=== PATIENT | male | born 1975 | race Hispanic/Latino ===

== ENCOUNTER 2017-11-06 14:31 | Emergency (ER) | payer MEDICARE ==
[~2017-11-06 14:31] MED LIST: AMLO10TA4 PO; ATOR20TA65 PO; CARV12.511 PO; Folic Acid/Vitamin B Comp W-C PO; INSU10VI3 SQ; LEVO25TA54 PO; LOSA50TA37 PO; PARO-37 PO
[2017-11-06 15:06] LABS: BASOPHILS % (AUTO) 0.6 % (0.0-5.0); EOSINOPHILS % (AUTO) 1.7 % (0.0-8.0); HEMATOCRIT 31.7 % (42-54); LYMPHOCYTES % (AUTO) 12.1 % (21.0-51.0); MEAN CORPUSCULAR HGB CONC 34.8 g/dL (32.0-36.0); MONOCYTES % (AUTO) 8.3 % (3.0-13.0); NEUTROPHILS % (AUTO) 77.3 % (40.0-77.0); PLATELET COUNT (AUTO) 237 K/uL (130-400); RED BLOOD CELL COUNT(AUTO) 3.45 MIL/uL (4.50-6.20); RED CELL DISTRIBUTION WIDTH 14.5 % (11.0-15.5); WHITE BLOOD COUNT (AUTO) 9.4 K/uL (4.8-10.8)
[2017-11-06 15:14] LABS: CREATININE 4.9 mg/dL (0.5-1.5); POTASSIUM 3.7 mmol/L (3.5-5.1)
[2017-11-06 15:30] LABS: ALBUMIN 3.5 g/dL (3.5-5.0); BILIRUBIN,TOTAL 0.6 mg/dL (0.2-1.0); CREATINE KINASE MB 0.5 ng/mL (0.5-3.6); TOTAL PROTEIN, SERUM 7.7 g/dL (6.0-8.3)
[2017-11-06 15:33] LABS: B-TYPE NATRIURETIC PEPTIDE 176 pg/mL (0-100)
[2017-11-29] MEDS ORDERED: FOLI0.4T2 PO (16:24)
[2017-11-29] MEDS ORDERED: SEVELAMER CARB PO (16:24)
[2017-11-29] MEDS ORDERED: ATOR20TA65 PO (16:24)
[2017-11-29] MEDS ORDERED: FOLI1TAB61 PO (16:24)
[2017-11-29] MEDS ORDERED: HUM10VIA6 SQ (16:24)
[2017-11-29] MEDS ORDERED: AMLO10TA2 PO (16:24)
[2017-11-29] MEDS ORDERED: SUCR500T PO (16:24)
[2017-11-29] MEDS ORDERED: CARV25TA PO (16:24)
[2017-11-29] MEDS ORDERED: CALC667T5 PO (16:24)
[2017-11-29] MEDS ORDERED: LOSA100T29 PO (16:24)
== END 2017-11-06 17:34 | disposition home or self-care (01) ==
LOC: EDH 14:31
DX: I12.0 Hypertensive chronic kidney disease with stage 5 chronic kidney disease or end stage renal disease (principal); E11.22 Type 2 diabetes mellitus with diabetic chronic kidney disease; N18.6 End stage renal disease; E78.00 Pure hypercholesterolemia, unspecified; Z99.2 Dependence on renal dialysis
CPT/HCPCS: 36415; 71045; 80053; 82553; 83880; 84484; 85025; 93005

== ENCOUNTER 2017-11-07 23:59 | Inpatient (IN) | payer MEDICARE ==
[~2017-11-07] VITALS: Ht 170.2 cm; Wt 92.4 kg
[2017-11-08] MEDS ORDERED: ASPIRIN 325 MG TABLET ONE (00:20)
[2017-11-08 00:37] LABS: BASOPHILS % (AUTO) 0.8 % (0.0-5.0); HEMATOCRIT 28.7 % (42-54); LYMPHOCYTES % (AUTO) 22.2 % (21.0-51.0); MEAN CORPUSCULAR HEMOGLOBIN 32.9 pg (27.0-33.0); MEAN CORPUSCULAR HGB CONC 35.1 g/dL (32.0-36.0); MEAN CORPUSCULAR VOLUME 93.8 fL (79-99); MONOCYTES % (AUTO) 9.3 % (3.0-13.0); NEUTROPHILS % (AUTO) 63.7 % (40.0-77.0); PLATELET COUNT (AUTO) 201 K/uL (130-400); RED BLOOD CELL COUNT(AUTO) 3.06 MIL/uL (4.50-6.20); RED CELL DISTRIBUTION WIDTH 14.5 % (11.0-15.5); WHITE BLOOD COUNT (AUTO) 7.9 K/uL (4.8-10.8)
[2017-11-08 00:45] LABS: INR 0.95 (0.85-1.15); PARTIAL THROMBOPLASTIN TIME 27.5 SEC (26.3-35.5)
[2017-11-08 00:59] LABS: ALBUMIN 3.4 g/dL (3.5-5.0); BILIRUBIN,TOTAL 0.3 mg/dL (0.2-1.0); TOTAL PROTEIN, SERUM 7.4 g/dL (6.0-8.3)
[2017-11-08 01:03] LABS: CREATININE 8.3 mg/dL (0.5-1.5)
[2017-11-08] MEDS ORDERED: NITROGLYCERIN 1GM/1 INCH PACKET TD ONE (01:53)
[2017-11-08 02:42] LABS: AMPHET/METH SCREEN,URINE NEGATIVE (NEGATIVE); BARBITURATE SCREEN, URINE NEGATIVE (NEGATIVE); BENZODIAZEPINES SCREEN,URINE NEGATIVE (NEGATIVE); CANNABINOID SCREEN,URINE NEGATIVE (NEGATIVE); COCAINE SCREEN,URINE NEGATIVE (NEGATIVE); OPIATE SCREEN,URINE NEGATIVE (NEGATIVE); PHENCYCLIDINE SCREEN,URINE NEGATIVE (NEGATIVE)
[2017-11-08 08:24] LABS: CHOLESTEROL 122 mg/dL (<200); CREATINE KINASE MB 0.7 ng/mL (0.5-3.6); CREATINE KINASE, TOTAL 62 U/L (21-232); HDL CHOLESTEROL 34 mg/dL (29-71); LDL DIRECT 57 mg/dL (0-99); MYOGLOBIN 113 ng/mL (10-92); TRIGLYCERIDES 188 mg/dL (30-200); TROPONIN I < 0.04 ng/mL (0.00-0.06)
[2017-11-08 08:39] LABS: HEMOGLOBIN A1C 8.9 % (4.0-6.0)
[2017-11-08] MEDS ORDERED: INSULIN HUMULIN R 100 UNIT/ML 3ML ONE (09:58)
[2017-11-08] MEDS ORDERED: SODIUM CHLORIDE 0.9% 1000ML 1,000 ML IV PRN (12:45)
[2017-11-08] MEDS ORDERED: ALBUMIN (HUMAN) 25% 100 ML IV PRN (12:45)
[2017-11-08] MEDS ORDERED: HEPARIN SODIUM 5000UNIT/ML 1ML VIAL IJ PRN (12:45)
[2017-11-08] MEDS ORDERED: 0.9% SODIUM CHLORIDE 250 ML IV BAG IV PRN (12:45)
[2017-11-08 14:57] VITALS: BP 186/98
[2017-11-08 16:08] VITALS: BP 186/83
[2017-11-08] MEDS: EPOETIN ALFA 3,000 UNIT/ML ML SQ NR (16:49)
[2017-11-08] MEDS: EPOETIN ALFA 2,000 UNIT/ML VIAL SQ NR (16:49)
[2017-11-08] MEDS ORDERED: REGADENOSON 0.4 MG/5 ML PF SYG IVP SCH (19:30)
[2017-11-08] MEDS ORDERED: LIDOCAINE HCL-MPF 1% 2ML VIAL IJ PRN (19:45)
[2017-11-08] MEDS ORDERED: HYDROMORPHONE HCL 0.5 MG/0.5 ML ML IVP PRN (19:45)
[2017-11-08] MEDS ORDERED: ACETAMINOPHEN 325 MG TAB PO PRN (19:45)
[2017-11-08] MEDS ORDERED: POTASSIUM CHLORIDE 10% ELIXIR 20 MEQ/15 ML UDCUP PO PRN (19:45)
[2017-11-08] MEDS ORDERED: GLUCAGON 1MG KIT 1 MG ML IM PRN (19:45)
[2017-11-08] MEDS ORDERED: ONDANSETRON HCL 4 MG/2 ML VIAL IVP PRN (19:45)
[2017-11-08] MEDS ORDERED: POTASSIUM CHLORIDE 20 MEQ ERTAB PO PRN (19:45)
[2017-11-08] MEDS ORDERED: DEXTROSE 50%-WATER 50 ML DISP.SYRIN IV PRN (19:45)
[2017-11-08] MEDS ORDERED: POTASSIUM CHLORIDE 20MEQ/100ML 100 ML IV PRN (19:45)
[2017-11-08 19:59] VITALS: BP 180/96
[2017-11-08] MEDS ORDERED: HYDRALAZINE HCL 20 MG/ML VIAL ONE (20:04)
[2017-11-08] MEDS: INSULIN R PO SSI SQ SCH (20:48)
[2017-11-08] MEDS: HYDRALAZINE HCL 20 MG/ML VIAL IV PRN (21:09)
[2017-11-09 00:20] VITALS: BP 183/102
[2017-11-09] MEDS: HYDRALAZINE HCL 20 MG/ML VIAL IV PRN (00:56)
[2017-11-09 04:06] VITALS: BP 140/76
[2017-11-09 04:40] LABS: BASOPHILS % (AUTO) 1.1 % (0.0-5.0); EOSINOPHILS % (AUTO) 4.2 % (0.0-8.0); HEMATOCRIT 28.2 % (42-54); LYMPHOCYTES % (AUTO) 21.9 % (21.0-51.0); MEAN CORPUSCULAR HEMOGLOBIN 33.3 pg (27.0-33.0); MEAN CORPUSCULAR HGB CONC 35.8 g/dL (32.0-36.0); MONOCYTES % (AUTO) 7.7 % (3.0-13.0); NEUTROPHILS % (AUTO) 65.1 % (40.0-77.0); PLATELET COUNT (AUTO) 230 K/uL (130-400); RED BLOOD CELL COUNT(AUTO) 3.03 MIL/uL (4.50-6.20); RED CELL DISTRIBUTION WIDTH 14.4 % (11.0-15.5); WHITE BLOOD COUNT (AUTO) 8.6 K/uL (4.8-10.8)
[2017-11-09 04:52] LABS: CREATININE 7.2 mg/dL (0.5-1.5); MAGNESIUM 1.7 mg/dL (1.80-2.40); PHOSPHORUS 7.2 mg/dL (2.5-4.9); POTASSIUM 3.7 mmol/L (3.5-5.1)
[2017-11-09] MEDS: INSULIN R PO SSI SQ SCH ×4 (06:30→20:41)
[2017-11-09 07:00] VITALS: BP 149/75
[2017-11-09] MEDS ORDERED: REGADENOSON 0.4 MG/5 ML PF SYG IVP SCH (09:00)
[2017-11-09] MEDS: PANTOPRAZOLE SODIUM 40 MG TABLET.DR PO SCH (12:06)
[2017-11-09] MEDS: ASPIRIN 81MG TAB.CHEW PO SCH (12:06)
[2017-11-09 12:30] VITALS: BP 169/86
[2017-11-09] MEDS: EPOETIN ALFA 3,000 UNIT/ML ML SQ NR (14:29)
[2017-11-09] MEDS: EPOETIN ALFA 2,000 UNIT/ML VIAL SQ NR (14:29)
[2017-11-09 16:00] VITALS: BP 142/81
[2017-11-09] MEDS: INSULIN HUMULIN 70/30 100 UNIT/ML 3ML SQ SCH (16:51)
[2017-11-09 20:03] VITALS: BP 165/109
[2017-11-09] MEDS: CARVEDILOL 12.5 MG TABLET PO SCH (20:27)
[2017-11-09] MEDS ORDERED: ATORVASTATIN CALCIUM 20 MG TABLET PO SCH (21:00)
[2017-11-10] VITALS: BP 162/88
[2017-11-10] MEDS: HYDRALAZINE HCL 20 MG/ML VIAL IV PRN (03:26)
[2017-11-10 04:00] VITALS: BP 168/88
[2017-11-10] MEDS: INSULIN R PO SSI SQ SCH ×3 (06:08→16:24)
[2017-11-10] MEDS: INSULIN HUMULIN 70/30 100 UNIT/ML 3ML SQ SCH ×2 (06:27→16:36)
[2017-11-10] MEDS ORDERED: LEVOTHYROXINE 25 MCG TABLET PO SCH (06:30)
[2017-11-10 07:39] VITALS: BP 165/82
[2017-11-10] MEDS: PANTOPRAZOLE SODIUM 40 MG TABLET.DR PO SCH (08:48)
[2017-11-10] MEDS: ASPIRIN 81MG TAB.CHEW PO SCH (08:49)
[2017-11-10] MEDS: CARVEDILOL 12.5 MG TABLET PO SCH (08:49)
[2017-11-10] MEDS ORDERED: PAROXETINE HCL 20 MG TABLET PO SCH (09:00)
[2017-11-10] MEDS ORDERED: VITAMIN B COMPLEX 1 CAPSULE PO SCH (09:00)
[2017-11-10] MEDS ORDERED: LOSARTAN 50 MG TABLET PO SCH ×2 (09:00→10:52)
[2017-11-10] MEDS ORDERED: AMLODIPINE BESYLATE 5 MG TAB PO SCH (09:00)
[2017-11-10 11:00] VITALS: BP 170/88
[2017-11-10] MEDS: EPOETIN ALFA 2,000 UNIT/ML VIAL SQ NR (14:35)
[2017-11-10] MEDS: EPOETIN ALFA 3,000 UNIT/ML ML SQ NR (14:35)
[2017-11-10] MEDS ORDERED: AEC81 PO (15:37)
[2017-11-10] MEDS ORDERED: NITR0.4T50 SL (15:37)
[2017-11-10 16:24] VITALS: BP 150/79
[2017-11-10] MEDS ORDERED: CARVEDILOL 12.5 MG TABLET PO SCH (21:00)
[2017-11-11] MEDS ORDERED: LOSARTAN 50 MG TABLET PO SCH (09:00)
[2017-11-29] MEDS ORDERED: AMLO10TA2 PO (16:24)
[2017-11-29] MEDS ORDERED: SEVELAMER CARB PO (16:24)
[2017-11-29] MEDS ORDERED: FOLI0.4T2 PO (16:24)
[2017-11-29] MEDS ORDERED: ATOR20TA65 PO (16:24)
[2017-11-29] MEDS ORDERED: CALC667T5 PO (16:24)
[2017-11-29] MEDS ORDERED: LOSA100T29 PO (16:24)
[2017-11-29] MEDS ORDERED: FOLI1TAB61 PO (16:24)
[2017-11-29] MEDS ORDERED: SUCR500T PO (16:24)
[2017-11-29] MEDS ORDERED: CARV25TA PO (16:24)
[2017-11-29] MEDS ORDERED: HUM10VIA6 SQ (16:24)
== END 2017-11-10 17:50 | disposition home or self-care (01) | DRG 302 ==
LOC: EDH 23:59 → EDHIP 11-08 01:50 → 2DH 11-08 12:18
PROVIDERS: ADMIT Internal Medicine Nephrology; ATTEND Internal Medicine Nephrology
PROC: 5A1D70Z Performance of Urinary Filtration, Intermittent, Less than 6 Hours Per Day (ICD-10-PCS; principal; 2017-11-08)
DX: I25.110 Atherosclerotic heart disease of native coronary artery with unstable angina pectoris (principal); N18.6 End stage renal disease; E11.21 Type 2 diabetes mellitus with diabetic nephropathy; E11.51 Type 2 diabetes mellitus with diabetic peripheral angiopathy without gangrene; I12.0 Hypertensive chronic kidney disease with stage 5 chronic kidney disease or end stage renal disease; E11.22 Type 2 diabetes mellitus with diabetic chronic kidney disease; I16.0 Hypertensive urgency; E78.00 Pure hypercholesterolemia, unspecified; E78.5 Hyperlipidemia, unspecified; D64.9 Anemia, unspecified; Z99.2 Dependence on renal dialysis; Z82.49 Family history of ischemic heart disease and other diseases of the circulatory system; Z91.19 Patient's noncompliance with other medical treatment and regimen
CPT/HCPCS: 36415; 71045; 78452; 80048; 80053; 80061; 80305; 82550; 82553; 82948; 83036; 83690; 83735; 83874; 83880; 84100; 84484; 85025; 85610; 85730; 90935; 93005; 93017; 93306; 96374; A9500; J0360; J0885; J1815; J2785

== ENCOUNTER 2017-12-03 05:57 | Day surgery (SDC) | payer MEDICARE ==
[2017-11-29 14:04] VITALS: BP 133/61
[2017-11-29 14:18] LABS: APPEARANCE,URINE Cloudy (CLEAR); BILIRUBIN,URINE Negative (NEGATIVE); COLOR,URINE Yellow (YELLOW); GLUCOSE, URINE (UA) 500 mg/dL (NEGATIVE); KETONES,URINE Negative (NEGATIVE); LEUKOCYTE ESTERASE ,URINE Negative (NEGATIVE); NITRATE,URINE Negative (NEGATIVE); OCCULT BLOOD,URINE Small (NEGATIVE); PH,URINE 5.5 (5.0-8.0); PROTEIN,URINE >=1000 (NEGATIVE); UROBILINOGEN,URINE 0.2 mg/dL (0.2-1.0)
[2017-11-29 14:22] LABS: BASOPHILS % (AUTO) 0.9 % (0.0-5.0); EOSINOPHILS % (AUTO) 2.6 % (0.0-8.0); LYMPHOCYTES % (AUTO) 12.7 % (21.0-51.0); MEAN CORPUSCULAR HEMOGLOBIN 32.5 pg (27.0-33.0); MEAN CORPUSCULAR HGB CONC 35.2 g/dL (32.0-36.0); MEAN CORPUSCULAR VOLUME 92.6 fL (79-99); MONOCYTES % (AUTO) 4.8 % (3.0-13.0); PLATELET COUNT (AUTO) 254 K/uL (130-400); RED BLOOD CELL COUNT(AUTO) 3.89 MIL/uL (4.50-6.20); RED CELL DISTRIBUTION WIDTH 14.4 % (11.0-15.5)
[2017-11-29 14:31] LABS: CREATININE 5.2 mg/dL (0.5-1.5); POTASSIUM 3.7 mmol/L (3.5-5.1)
[2017-11-29 14:36] LABS: INR 0.99 (0.85-1.15); PARTIAL THROMBOPLASTIN TIME 28.4 SEC (26.3-35.5); PROTHROMBIN TIME 10.4 SEC (9.6-11.6)
[2017-11-29 14:53] LABS: BACTERIA,URINE Rare /HPF (None Seen); RBC,URINE 0-1 /HPF (0-1); SQUAMOUS EPITHELIAL CELL,UR Rare /HPF (0-2)
[2017-12-03] VITALS (12 sets, daily range): BP systolic 134–172; BP diastolic 58–75
[~2017-12-03] VITALS: Ht 172.7 cm; Wt 89.1 kg
[~2017-12-03 05:57] MED LIST changes: +AMLO10TA2 PO; -AMLO10TA4 PO; +CALC667T5 PO; -CARV12.511 PO; +CARV25TA PO; +FOLI0.4T2 PO; +FOLI1TAB61 PO; -Folic Acid/Vitamin B Comp W-C PO; +HUM10VIA6 SQ; -INSU10VI3 SQ; +LOSA100T29 PO; -LOSA50TA37 PO; +SEVELAMER CARB PO; +SUCR500T PO
[2017-12-03] MEDS ORDERED: ISOVUE-370 50ML VIAL IV ONE (07:12)
[2017-12-03] MEDS ORDERED: LIDOCAINE HCL-MPF 2% 5ML VIAL ONE (07:12)
[2017-12-03] MEDS ORDERED: IOPAMIDOL-370 100 ML VIAL IV ONE (07:12)
[2017-12-03] MEDS ORDERED: NITROGLYCERIN 5 MG/ML 10 ML VIAL IV ONE (07:12)
[2017-12-03] MEDS ORDERED: SODIUM CHLORIDE 0.9% 1000ML 1,000 ML IV ONE (07:15)
[2017-12-03] MEDS ORDERED: AEC81 PO (07:16)
[2017-12-03] MEDS ORDERED: GLUCAGON 1MG KIT 1 MG ML IM PRN (08:15)
[2017-12-03] MEDS ORDERED: DEXTROSE 50%-WATER 50 ML DISP.SYRIN IV PRN (08:15)
[2017-12-03] MEDS ORDERED: INSULIN HUMULIN R 100 UNIT/ML 3ML ONE (09:05)
[2017-12-03] MEDS ORDERED: ACETAMINOPHEN 325 MG TAB PO ONE (10:45)
[2017-12-03] MEDS ORDERED: INSULIN HUMULIN R 100 UNIT/ML 3ML SQ SCH (11:30)
== END 2017-12-03 14:03 | disposition home or self-care (01) ==
LOC: DAH 05:57
PROVIDERS: ATTEND Internal Medicine Cardiovascular Disease
DX: I25.10 Atherosclerotic heart disease of native coronary artery without angina pectoris (principal); I12.0 Hypertensive chronic kidney disease with stage 5 chronic kidney disease or end stage renal disease; E11.22 Type 2 diabetes mellitus with diabetic chronic kidney disease; N18.6 End stage renal disease; Z99.2 Dependence on renal dialysis; Z79.899 Other long term (current) drug therapy; Z82.49 Family history of ischemic heart disease and other diseases of the circulatory system; R06.02 Shortness of breath; D64.9 Anemia, unspecified; E78.00 Pure hypercholesterolemia, unspecified; E11.21 Type 2 diabetes mellitus with diabetic nephropathy; E11.51 Type 2 diabetes mellitus with diabetic peripheral angiopathy without gangrene; Z94.0 Kidney transplant status
CPT/HCPCS: 36415; 71045; 75625; 80048; 81001; 82948 ×2; 85025; 85610; 85730; 93005; 93458; A4606; C1760; C1894; J1644; J1815; J3490 ×2; J7030; Q9967 ×2

== ENCOUNTER 2017-12-29 21:42 | Emergency (ER) | payer MEDICARE ==
[~2017-12-29 21:42] MED LIST changes: +AEC81 PO
[2017-12-29 22:04] LABS: BASOPHILS % (AUTO) 0.7 % (0.0-5.0); HEMATOCRIT 29.5 % (42-54); LYMPHOCYTES % (AUTO) 14.4 % (21.0-51.0); MEAN CORPUSCULAR HEMOGLOBIN 32.2 pg (27.0-33.0); MEAN CORPUSCULAR HGB CONC 35.8 g/dL (32.0-36.0); MEAN CORPUSCULAR VOLUME 90.2 fL (79-99); MONOCYTES % (AUTO) 7.1 % (3.0-13.0); NEUTROPHILS % (AUTO) 73.8 % (40.0-77.0); PLATELET COUNT (AUTO) 194 K/uL (130-400); RED BLOOD CELL COUNT(AUTO) 3.27 MIL/uL (4.50-6.20); RED CELL DISTRIBUTION WIDTH 13.5 % (11.0-15.5)
[2017-12-29] MEDS ORDERED: HYDROXYZINE HCL 25 MG TABLET ONE (22:06)
[2017-12-29 22:15] LABS: INR 0.95 (0.85-1.15); PARTIAL THROMBOPLASTIN TIME 28.7 SEC (26.3-35.5)
[2017-12-29 22:27] LABS: ALBUMIN 3.4 g/dL (3.5-5.0); BILIRUBIN,TOTAL 0.3 mg/dL (0.2-1.0); CREATINE KINASE MB 1.1 ng/mL (0.5-3.6); POTASSIUM 4.6 mmol/L (3.5-5.1); TOTAL PROTEIN, SERUM 7.3 g/dL (6.0-8.3)
[2017-12-29 22:30] LABS: CREATININE 10.7 mg/dL (0.5-1.5)
== END 2017-12-29 22:43 | disposition home or self-care (01) ==
LOC: EDH 21:42
DX: F43.9 Reaction to severe stress, unspecified (principal); E11.22 Type 2 diabetes mellitus with diabetic chronic kidney disease; I12.0 Hypertensive chronic kidney disease with stage 5 chronic kidney disease or end stage renal disease; N18.6 End stage renal disease; E78.00 Pure hypercholesterolemia, unspecified; Z99.2 Dependence on renal dialysis
CPT/HCPCS: 36415; 71045; 80053; 82550; 82553; 83874; 84484; 85025; 85610; 85730; 93005

== ENCOUNTER 2018-06-30 18:26 | Emergency (ER) | payer MEDICARE ==
[~2018-06-30 18:26] MED LIST changes: -AMLO10TA2 PO; +AMLO10TA6 PO; +LOSA100T20 PO; -LOSA100T29 PO
[2018-06-30 19:37] LABS: BASOPHILS % (AUTO) 0.6 % (0.0-5.0); EOSINOPHILS % (AUTO) 1.1 % (0.0-8.0); HEMATOCRIT 32.6 % (42-54); LYMPHOCYTES % (AUTO) 13.5 % (21.0-51.0); MEAN CORPUSCULAR HGB CONC 34.4 g/dL (32.0-36.0); MONOCYTES % (AUTO) 6.7 % (3.0-13.0); NEUTROPHILS % (AUTO) 78.1 % (40.0-77.0); PLATELET COUNT (AUTO) 234 K/uL (130-400); RED BLOOD CELL COUNT(AUTO) 3.39 MIL/uL (4.50-6.20); WHITE BLOOD COUNT (AUTO) 9.7 K/uL (4.8-10.8)
[2018-06-30 19:54] LABS: ALBUMIN 3.5 g/dL (3.5-5.0); BILIRUBIN,TOTAL 0.2 mg/dL (0.2-1.0); CREATININE 6.9 mg/dL (0.5-1.5); POTASSIUM 5.2 mmol/L (3.5-5.1); TOTAL PROTEIN, SERUM 7.8 g/dL (6.0-8.3)
[2018-06-30] MEDS ORDERED: INSULIN HUMULIN R 100 UNIT/ML 3ML ONE (20:16)
[2018-06-30 20:21] LABS: INR 0.95 (0.85-1.15); PARTIAL THROMBOPLASTIN TIME 29.5 SEC (26.3-35.5)
== END 2018-06-30 22:09 | disposition home or self-care (01) ==
LOC: EDH 18:26
DX: I12.0 Hypertensive chronic kidney disease with stage 5 chronic kidney disease or end stage renal disease (principal); E11.22 Type 2 diabetes mellitus with diabetic chronic kidney disease; N18.6 End stage renal disease; R20.2 Paresthesia of skin; E11.65 Type 2 diabetes mellitus with hyperglycemia; E78.00 Pure hypercholesterolemia, unspecified; M79.604 Pain in right leg; M79.605 Pain in left leg; Z99.2 Dependence on renal dialysis; Z98.890 Other specified postprocedural states
CPT/HCPCS: 36415; 71045; 80053; 82550; 82948; 84484; 85025; 85610; 85730; 93005; 93970; 96374; 99285; J1815

== ENCOUNTER 2018-07-04 17:04 | Emergency (ER) | payer MEDICARE ==
[2018-07-04 17:53] LABS: BASOPHILS % (AUTO) 0.6 % (0.0-5.0); EOSINOPHILS % (AUTO) 1.2 % (0.0-8.0); HEMATOCRIT 31.2 % (42-54); LYMPHOCYTES % (AUTO) 12.4 % (21.0-51.0); MEAN CORPUSCULAR HGB CONC 34.4 g/dL (32.0-36.0); MEAN CORPUSCULAR VOLUME 96.1 fL (79-99); MONOCYTES % (AUTO) 6.9 % (3.0-13.0); NEUTROPHILS % (AUTO) 78.9 % (40.0-77.0); PLATELET COUNT (AUTO) 243 K/uL (130-400); RED BLOOD CELL COUNT(AUTO) 3.25 MIL/uL (4.50-6.20); WHITE BLOOD COUNT (AUTO) 10.4 K/uL (4.8-10.8)
[2018-07-04 18:13] LABS: POTASSIUM 4.8 mmol/L (3.5-5.1)
[2018-07-04] MEDS ORDERED: INSULIN HUMULIN R 100 UNIT/ML 3ML ONE (18:43)
== END 2018-07-04 19:53 | disposition home or self-care (01) ==
LOC: EDH 17:04
DX: L02.416 Cutaneous abscess of left lower limb (principal); I12.0 Hypertensive chronic kidney disease with stage 5 chronic kidney disease or end stage renal disease; E11.22 Type 2 diabetes mellitus with diabetic chronic kidney disease; N18.6 End stage renal disease; Z98.890 Other specified postprocedural states; Z99.2 Dependence on renal dialysis
CPT/HCPCS: 10060; 36415; 80048; 82948; 85025; 96374; 99284; J1815

== ENCOUNTER 2018-08-02 23:49 | Observation (INO) | payer MEDICARE ==
[~2018-08-02] VITALS: Ht 170.2 cm; Wt 95.9 kg
[2018-08-03] VITALS (7 sets, daily range): BP systolic 146–184; BP diastolic 70–87
[2018-08-03 00:17] LABS: BASOPHILS % (AUTO) 0.7 % (0.0-5.0); EOSINOPHILS % (AUTO) 4.2 % (0.0-8.0); HEMATOCRIT 31.8 % (42-54); LYMPHOCYTES % (AUTO) 18.9 % (21.0-51.0); MEAN CORPUSCULAR HEMOGLOBIN 32.5 pg (27.0-33.0); MEAN CORPUSCULAR HGB CONC 34.4 g/dL (32.0-36.0); MEAN CORPUSCULAR VOLUME 94.5 fL (79-99); MONOCYTES % (AUTO) 6.8 % (3.0-13.0); NEUTROPHILS % (AUTO) 69.4 % (40.0-77.0); PLATELET COUNT (AUTO) 165 K/uL (130-400); RED BLOOD CELL COUNT(AUTO) 3.36 MIL/uL (4.50-6.20); RED CELL DISTRIBUTION WIDTH 14.4 % (11.0-15.5); WHITE BLOOD COUNT (AUTO) 7.5 K/uL (4.8-10.8)
[2018-08-03 00:30] LABS: INR 0.93 (0.85-1.15); PARTIAL THROMBOPLASTIN TIME 29.5 SEC (26.3-35.5); PROTHROMBIN TIME 9.8 SEC (9.6-11.6)
[2018-08-03 00:37] LABS: ALBUMIN 3.2 g/dL (3.5-5.0); BILIRUBIN,TOTAL 0.3 mg/dL (0.2-1.0); POTASSIUM 4.2 mmol/L (3.5-5.1)
[2018-08-03 00:43] LABS: CREATININE 10.1 mg/dL (0.5-1.5)
[2018-08-03] MEDS ORDERED: ASPIRIN 325 MG TABLET ONE (01:06)
[2018-08-03] MEDS ORDERED: MORPHINE SULFATE 4 MG/1ML SYG ONE (01:26)
[2018-08-03] MEDS ORDERED: NITROGLYCERIN 0.4 MG SL TAB SL ONE (01:26)
[2018-08-03] MEDS ORDERED: ONDANSETRON HCL 4 MG/2 ML VIAL ONE (03:23)
[2018-08-03] MEDS ORDERED: NITROGLYCERIN 1GM/1 INCH PACKET TD ONE (03:23)
[2018-08-03] MEDS ORDERED: MORPHINE SULFATE 5 MG/ML VIAL ONE (03:24)
[2018-08-03] MEDS ORDERED: HYDRALAZINE HCL 20 MG/ML VIAL IV PRN (03:45)
[2018-08-03] MEDS ORDERED: ONDANSETRON HCL 4 MG/2 ML VIAL IV PRN (03:45)
[2018-08-03] MEDS ORDERED: ACETAMINOPHEN 325 MG TAB PO PRN (03:45)
[2018-08-03] MEDS ORDERED: HYDRALAZINE HCL 20 MG/ML VIAL ONE (04:23)
[2018-08-03] MEDS ORDERED: INSULIN HUMULIN R 100 UNIT/ML 3ML ONE (04:24)
[2018-08-03] MEDS: NITROGLYCERIN 1GM/1 INCH PACKET TD SCH ×3 (06:00→22:39)
[2018-08-03] MEDS: LEVOTHYROXINE 25 MCG TABLET PO SCH ×2 (06:22→07:29)
[2018-08-03] MEDS: CALCIUM ACETATE 667 MG CAPSULE PO SCH ×3 (07:29→17:50)
[2018-08-03] MEDS ORDERED: LOSARTAN 100 MG TABLET PO SCH (09:00)
[2018-08-03] MEDS ORDERED: FAMOTIDINE 20MG TAB 20 MG TAB PO SCH (09:00)
[2018-08-03] MEDS ORDERED: PAROXETINE HCL 20 MG TABLET PO SCH (09:00)
[2018-08-03] MEDS ORDERED: FOLIC ACID 1 MG TABLET PO SCH (09:00)
[2018-08-03] MEDS ORDERED: FOLIC ACID/VITAMIN B COMP W-C 1 MG CAPSULE PO SCH (09:00)
[2018-08-03] MEDS ORDERED: ASPIRIN 325MG EC TAB 325 MG TABLET.DR PO SCH (09:00)
[2018-08-03] MEDS ORDERED: AMLODIPINE BESYLATE 5 MG TAB PO SCH (09:00)
[2018-08-03] MEDS ORDERED: ATORVASTATIN CALCIUM 20 MG TABLET PO SCH (09:00)
[2018-08-03] MEDS: CARVEDILOL 25 MG TABLET PO SCH ×2 (09:13→20:23)
[2018-08-03] MEDS: ENOXAPARIN SODIUM 30 MG/0.3 ML SQ SCH (09:14)
[2018-08-03] MEDS: INSULIN HUMULIN R 100 UNIT/ML 3ML SQ SCH ×2 (16:30→20:46)
[2018-08-03] MEDS ORDERED: Sevelamer Carbonate 800 MG TAB PO SCH (17:00)
[2018-08-04] MEDS: MORPHINE SULFATE 4 MG/1ML SYG IV PRN ×2 (00:39→05:20)
[2018-08-04 03:49] VITALS: BP 161/82
[2018-08-04] MEDS ORDERED: SODIUM CHLORIDE 0.9% 1000ML 1,000 ML IV ONE (04:19)
[2018-08-04 04:28] LABS: BASOPHILS % (AUTO) 0.8 % (0.0-5.0); EOSINOPHILS % (AUTO) 3.8 % (0.0-8.0); LYMPHOCYTES % (AUTO) 13.9 % (21.0-51.0); MEAN CORPUSCULAR HEMOGLOBIN 31.8 pg (27.0-33.0); MEAN CORPUSCULAR VOLUME 93.6 fL (79-99); MONOCYTES % (AUTO) 5.8 % (3.0-13.0); NEUTROPHILS % (AUTO) 75.7 % (40.0-77.0); PLATELET COUNT (AUTO) 135 K/uL (130-400); RED CELL DISTRIBUTION WIDTH 14.1 % (11.0-15.5); WHITE BLOOD COUNT (AUTO) 8.9 K/uL (4.8-10.8)
[2018-08-04 04:52] LABS: MAGNESIUM 2.2 mg/dL (1.80-2.40); PHOSPHORUS 10.5 mg/dL (2.5-4.9); URIC ACID 7.9 mg/dL (2.6-7.2)
[2018-08-04 04:54] LABS: CREATININE 11.1 mg/dL (0.5-1.5)
[2018-08-04] MEDS ORDERED: ALBUMIN (HUMAN) 25% 100 ML IV PRN (05:00)
[2018-08-04] MEDS ORDERED: 0.9% SODIUM CHLORIDE 250 ML IV BAG IV PRN (05:00)
[2018-08-04] MEDS ORDERED: SODIUM CHLORIDE 0.9% 1000ML 1,000 ML IV PRN (05:00)
[2018-08-04] MEDS: NITROGLYCERIN 1GM/1 INCH PACKET TD SCH (05:23)
[2018-08-04] MEDS: INSULIN HUMULIN R 100 UNIT/ML 3ML SQ SCH (06:11)
[2018-08-04] MEDS: LEVOTHYROXINE 25 MCG TABLET PO SCH (06:30)
[2018-08-04 07:40] VITALS: BP 145/74
[2018-08-04] MEDS: CALCIUM ACETATE 667 MG CAPSULE PO SCH (08:00)
[2018-08-04] MEDS ORDERED: FOLIC ACID/VITAMIN B COMP W-C 1 MG CAPSULE PO SCH (09:00)
[2018-08-04] MEDS: ENOXAPARIN SODIUM 30 MG/0.3 ML SQ SCH (09:00)
[2018-08-04] MEDS: CARVEDILOL 25 MG TABLET PO SCH (09:52)
[2018-08-04] MEDS ORDERED: NITROGLYCERIN 5 MG/ML 10 ML VIAL IV ONE (11:05)
[2018-08-04] MEDS ORDERED: LIDOCAINE HCL 2% 20ML ONE (11:05)
[2018-08-04] MEDS ORDERED: IOHEXOL-350 50ML VIAL IV ONE (11:05)
[2018-08-04] MEDS ORDERED: IOHEXOL 350 MG/ML 100ML INFUS..BTL IV ONE (11:05)
[2018-08-04 11:46] VITALS: BP 142/70
== END 2018-08-04 13:21 | disposition home or self-care (01) ==
LOC: EDH 23:49 → EDHIP 08-03 03:20 → 2DH 08-03 05:11
PROVIDERS: ADMIT Hospitalist; ATTEND Hospitalist
DX: I24.9 Acute ischemic heart disease, unspecified (principal); E11.22 Type 2 diabetes mellitus with diabetic chronic kidney disease; E11.65 Type 2 diabetes mellitus with hyperglycemia; I12.0 Hypertensive chronic kidney disease with stage 5 chronic kidney disease or end stage renal disease; N18.6 End stage renal disease; E11.51 Type 2 diabetes mellitus with diabetic peripheral angiopathy without gangrene; E78.2 Mixed hyperlipidemia; D64.9 Anemia, unspecified; I16.0 Hypertensive urgency; E87.70 Fluid overload, unspecified; I25.10 Atherosclerotic heart disease of native coronary artery without angina pectoris; I25.5 Ischemic cardiomyopathy; M94.0 Chondrocostal junction syndrome [Tietze]; Z87.891 Personal history of nicotine dependence; Z91.11 Patient's noncompliance with dietary regimen; Z91.19 Patient's noncompliance with other medical treatment and regimen; Z99.2 Dependence on renal dialysis; Z82.49 Family history of ischemic heart disease and other diseases of the circulatory system; Z83.3 Family history of diabetes mellitus; Z79.4 Long term (current) use of insulin
CPT/HCPCS: 36415; 71045; 80048; 80053; 82550; 82948 ×4; 83735 ×2; 83874; 84100; 84484 ×2; 84550; 85025 ×2; 85610; 85730; 93005; 96372; 96374; 96375; 96376; 99284; G0257; G0378 ×34; J0360 ×2; J1650; J1815; J2270 ×4; J2405; J7030; 90935; J1644; J3490; Q9967

== ENCOUNTER 2018-08-30 06:31 | Inpatient (IN) | payer MEDICARE ==
[~2018-08-30] VITALS: Ht 170.2 cm; Wt 95.8 kg
[2018-08-30] MEDS ORDERED: ASPIRIN 325 MG TABLET ONE (06:37)
[2018-08-30] MEDS ORDERED: ONDANSETRON HCL 4 MG/2 ML VIAL ONE (06:46)
[2018-08-30] MEDS ORDERED: MORPHINE SULFATE 8 MG/ML VIAL ONE (06:47)
[2018-08-30] MEDS ORDERED: IPRATROPIUM/ALBUTEROL SULFATE 3 ML SOLUTION IH ONE (06:48)
[2018-08-30 06:57] LABS: BASOPHILS % (AUTO) 0.6 % (0.0-5.0); EOSINOPHILS % (AUTO) 0.2 % (0.0-8.0); HEMATOCRIT 31.2 % (42-54); LYMPHOCYTES % (AUTO) 3.9 % (21.0-51.0); MEAN CORPUSCULAR HEMOGLOBIN 32.1 pg (27.0-33.0); MEAN CORPUSCULAR HGB CONC 34.3 g/dL (32.0-36.0); MEAN CORPUSCULAR VOLUME 93.6 fL (79-99); MONOCYTES % (AUTO) 3.8 % (3.0-13.0); NEUTROPHILS % (AUTO) 91.5 % (40.0-77.0); PLATELET COUNT (AUTO) 233 K/uL (130-400); RED BLOOD CELL COUNT(AUTO) 3.33 MIL/uL (4.50-6.20); RED CELL DISTRIBUTION WIDTH 14.4 % (11.0-15.5); WHITE BLOOD COUNT (AUTO) 14.8 K/uL (4.8-10.8)
[2018-08-30 07:15] LABS: INR 0.95 (0.85-1.15); PARTIAL THROMBOPLASTIN TIME 30.5 SEC (26.3-35.5)
[2018-08-30 07:19] LABS: ALBUMIN 3.3 g/dL (3.5-5.0); BILIRUBIN,TOTAL 0.4 mg/dL (0.2-1.0); TOTAL PROTEIN, SERUM 7.3 g/dL (6.0-8.3)
[2018-08-30 07:40] LABS: POTASSIUM 6.7 mmol/L (3.5-5.1)
[2018-08-30 07:41] LABS: CREATININE 11.1 mg/dL (0.5-1.5)
[2018-08-30] MEDS ORDERED: ONDANSETRON HCL 4 MG/2 ML VIAL IVP PRN (08:45)
[2018-08-30] MEDS ORDERED: GLUCAGON 1MG KIT 1 MG ML IM PRN (08:45)
[2018-08-30] MEDS ORDERED: DEXTROSE 50%-WATER 50 ML DISP.SYRIN IV PRN (08:45)
[2018-08-30] MEDS ORDERED: PANTOPRAZOLE 40 MG/VIAL IVP SCH (09:00)
[2018-08-30] MEDS ORDERED: ACETAMINOPHEN EXTRA STRENGTH 500 MG TABLET ONE (09:47)
[2018-08-30 10:51] LABS: APPEARANCE,URINE Clear (CLEAR); BILIRUBIN,URINE Negative (NEGATIVE); COLOR,URINE Yellow (YELLOW); GLUCOSE, URINE (UA) >=1000 mg/dL (NEGATIVE); KETONES,URINE Negative (NEGATIVE); LEUKOCYTE ESTERASE ,URINE Negative (NEGATIVE); NITRATE,URINE Negative (NEGATIVE); OCCULT BLOOD,URINE Moderate (NEGATIVE); PH,URINE 6.5 (5.0-8.0); PROTEIN,URINE >=1000 (NEGATIVE); UROBILINOGEN,URINE 0.2 mg/dL (0.2-1.0)
[2018-08-30 10:57] LABS: AMPHET/METH SCREEN,URINE NEGATIVE (NEGATIVE); BARBITURATE SCREEN, URINE NEGATIVE (NEGATIVE); BENZODIAZEPINES SCREEN,URINE NEGATIVE (NEGATIVE); CANNABINOID SCREEN,URINE NEGATIVE (NEGATIVE); COCAINE SCREEN,URINE NEGATIVE (NEGATIVE); OPIATE SCREEN,URINE POSITIVE (NEGATIVE); PHENCYCLIDINE SCREEN,URINE NEGATIVE (NEGATIVE)
[2018-08-30] MEDS ORDERED: NITROGLYCERIN 0.4 MG SL TAB SL ONE (11:19)
[2018-08-30] MEDS: INSULIN R PO SS1 SQ SCH ×3 (11:30→21:30)
[2018-08-30 11:33] LABS: BACTERIA,URINE Rare /HPF (None Seen); RBC,URINE 0-1 /HPF (0-1); SQUAMOUS EPITHELIAL CELL,UR 0-2 /HPF (0-2)
[2018-08-30] MEDS ORDERED: CALCIUM GLUCONATE 1 GM/10 ML VIAL IV ONE (12:00)
[2018-08-30] MEDS ORDERED: SODIUM CHLORIDE 0.9% 50 ML IV ONE (12:00)
[2018-08-30] MEDS ORDERED: ASPIRIN 81MG TAB.CHEW ONE (12:46)
[2018-08-30] MEDS ORDERED: ALBUMIN (HUMAN) 25% 100 ML IV PRN (15:15)
[2018-08-30] MEDS ORDERED: 0.9% SODIUM CHLORIDE 250 ML IV BAG IV PRN (15:15)
[2018-08-30] MEDS ORDERED: SODIUM CHLORIDE 0.9% 1000ML 1,000 ML IV PRN (15:15)
[2018-08-30] MEDS ORDERED: HEPARIN SODIUM 5000UNIT/ML 1ML VIAL ONE (16:43)
[2018-08-30] MEDS ORDERED: HEPARIN 25000 UNITS/250 ML D5W 250 ML IV ONE (16:44)
[2018-08-30 17:40] VITALS: BP 175/95
[2018-08-30] MEDS ORDERED: GABA-531 PO (17:54)
[2018-08-30] MEDS ORDERED: ACET1TAB25 PO (17:54)
[2018-08-30] MEDS ORDERED: HUM100IN SQ ×2 (17:54)
[2018-08-30 19:33] VITALS: BP 175/80
[2018-08-30] MEDS: CARVEDILOL 25 MG TABLET PO SCH (21:35)
[2018-08-30] MEDS: GABAPENTIN 300 MG CAPSULE PO SCH (21:35)
[2018-08-30] MEDS ORDERED: NITROGLYCERIN 1GM/1 INCH PACKET TD ONE (22:24)
[2018-08-30 23:51] LABS: TROPONIN I 53.21 ng/mL (0.00-0.06)
[2018-08-31] VITALS (14 sets, daily range): BP systolic 123–155; BP diastolic 58–83
[2018-08-31 05:23] LABS: HEMATOCRIT 28.5 % (42-54); MEAN CORPUSCULAR HEMOGLOBIN 31.2 pg (27.0-33.0); MEAN CORPUSCULAR HGB CONC 33.7 g/dL (32.0-36.0); MEAN CORPUSCULAR VOLUME 92.7 fL (79-99); PLATELET COUNT (AUTO) 205 K/uL (130-400); RED BLOOD CELL COUNT(AUTO) 3.07 MIL/uL (4.50-6.20); RED CELL DISTRIBUTION WIDTH 14.2 % (11.0-15.5); WHITE BLOOD COUNT (AUTO) 8.9 K/uL (4.8-10.8)
[2018-08-31] MEDS: NITROGLYCERIN 1GM/1 INCH PACKET TD SCH ×3 (05:41→11:23)
[2018-08-31 05:44] LABS: ALBUMIN 2.9 g/dL (3.5-5.0); BILIRUBIN,TOTAL 0.4 mg/dL (0.2-1.0); MAGNESIUM 2.3 mg/dL (1.80-2.40); PHOSPHORUS 5.7 mg/dL (2.5-4.9); POTASSIUM 4.4 mmol/L (3.5-5.1); TOTAL PROTEIN, SERUM 6.8 g/dL (6.0-8.3)
[2018-08-31 05:48] LABS: CREATININE 8.2 mg/dL (0.5-1.5)
[2018-08-31] MEDS ORDERED: HEPARIN 25000 UNITS/250 ML D5W 250 ML IV SCH (06:15)
[2018-08-31 06:18] LABS: TROPONIN I 39.53 ng/mL (0.00-0.06)
[2018-08-31] MEDS: INSULIN R PO SS1 SQ SCH ×4 (06:52→21:20)
[2018-08-31] MEDS: PAROXETINE HCL 20 MG TABLET PO SCH (07:48)
[2018-08-31] MEDS: LEVOTHYROXINE 25 MCG TABLET PO SCH (07:48)
[2018-08-31] MEDS: LOSARTAN 100 MG TABLET PO SCH (07:48)
[2018-08-31] MEDS: CARVEDILOL 25 MG TABLET PO SCH ×2 (07:48→20:56)
[2018-08-31] MEDS: MULTIVITAMIN WITH MINERALS TABLET PO SCH (07:48)
[2018-08-31] MEDS: ASPIRIN 81 MG EC TAB PO SCH (07:48)
[2018-08-31] MEDS: SEVELAMER HCL 800 MG TABLET PO SCH ×3 (07:49→17:00)
[2018-08-31] MEDS: CALCIUM ACETATE 667 MG CAPSULE PO SCH ×3 (07:49→17:00)
[2018-08-31] MEDS: FOLIC ACID 0.4 MG PO SCH (07:49)
[2018-08-31] MEDS: AMLODIPINE BESYLATE 5 MG TAB PO SCH (07:49)
[2018-08-31] MEDS ORDERED: PANTOPRAZOLE SODIUM 40 MG TABLET.DR PO SCH (07:51)
[2018-08-31] MEDS: GABAPENTIN 300 MG CAPSULE PO SCH ×3 (07:52→20:55)
[2018-08-31] MEDS ORDERED: ASPIRIN 81 MG EC TAB PO SCH (09:00)
[2018-08-31] MEDS ORDERED: LIDOCAINE HCL 2% 20ML ONE (11:38)
[2018-08-31] MEDS ORDERED: IOHEXOL-350 50ML VIAL IV ONE (11:38)
[2018-08-31] MEDS ORDERED: IOHEXOL 350 MG/ML 100ML INFUS..BTL IV ONE (11:38)
[2018-08-31] MEDS ORDERED: HEPARIN SODIUM 1000UNIT/ML 10ML VIAL ONE (11:38)
[2018-08-31] MEDS ORDERED: NITROGLYCERIN 5 MG/ML 10 ML VIAL IV ONE (11:38)
[2018-08-31] MEDS ORDERED: MIDAZOLAM HCL 1 MG/ML 2ML VIAL ONE (12:18)
[2018-08-31] MEDS ORDERED: BIVALIRUDIN 250 MG/VIAL IV ONE (12:44)
[2018-08-31] MEDS ORDERED: PRASUGREL HCL 10 MG TABLET ONE (12:52)
[2018-08-31] MEDS ORDERED: ASPIRIN 325MG EC TAB 325 MG TABLET.DR PO ONE (12:52)
[2018-08-31] MEDS ORDERED: LABETALOL HCL 5 MG/ML 20ML VIAL IV ONE (13:10)
[2018-08-31] MEDS ORDERED: FENTANYL CITRATE PF 50 MCG/1 ML 2ML VIAL ONE (13:28)
[2018-08-31] MEDS ORDERED: ACETAMINOPHEN 325 MG TAB PO PRN (15:00)
[2018-08-31 19:25] LABS: HEMATOCRIT 26.6 % (42-54)
[2018-08-31] MEDS: PANTOPRAZOLE 40 MG/VIAL IVP SCH (20:59)
[2018-08-31] MEDS ORDERED: ATORVASTATIN CALCIUM 20 MG TABLET PO SCH ×2 (21:00)
[2018-08-31 22:55] LABS: TROPONIN I 11.43 ng/mL (0.00-0.06)
[2018-09-01 04:23] VITALS: BP 138/71
[2018-09-01 04:26] LABS: HEMATOCRIT 24.8 % (42-54); MEAN CORPUSCULAR HEMOGLOBIN 31.9 pg (27.0-33.0); MEAN CORPUSCULAR HGB CONC 34.2 g/dL (32.0-36.0); PLATELET COUNT (AUTO) 189 K/uL (130-400); RED BLOOD CELL COUNT(AUTO) 2.66 MIL/uL (4.50-6.20); RED CELL DISTRIBUTION WIDTH 14.5 % (11.0-15.5); WHITE BLOOD COUNT (AUTO) 5.7 K/uL (4.8-10.8)
[2018-09-01 04:37] LABS: PHOSPHORUS 7.1 mg/dL (2.5-4.9); POTASSIUM 5.1 mmol/L (3.5-5.1)
[2018-09-01 04:43] LABS: CREATININE 10.4 mg/dL (0.5-1.5)
[2018-09-01 04:48] LABS: BAND NEUTROPHILS % (MANUAL) 1 % (0-2); BASOPHILS % (MANUAL) 2 % (0-2); EOSINOPHILS % (MANUAL) 1 % (1-6); LYMPHOCYTES % (MANUAL) 21 % (22-44); MAN.DIFF COMMENT-IMPRESSION MANUAL DIFFERENTIAL; MONOCYTES % (MANUAL) 8 % (2-9); PLATELET MORPHOLOGY COMMENT ADEQUATE; REACTIVE LYMPHOCYTES 3 % (0-0); SEGMENTED NEUTROPHILS % 64 % (40-70)
[2018-09-01] MEDS ORDERED: ATOR40TA71 PO (07:11)
[2018-09-01] MEDS ORDERED: PRAS10TA6 PO (07:11)
[2018-09-01 07:21] VITALS: BP 128/65
[2018-09-01] MEDS ORDERED: OXYMETAZOLINE HCL SPRAY 15 ML BOTTLE EN SCH (07:30)
[2018-09-01] MEDS: CALCIUM ACETATE 667 MG CAPSULE PO SCH ×2 (08:00→12:00)
[2018-09-01] MEDS: SEVELAMER HCL 800 MG TABLET PO SCH ×2 (08:00→12:00)
[2018-09-01] MEDS: INSULIN R PO SS1 SQ SCH ×2 (08:02→13:02)
[2018-09-01] MEDS: PANTOPRAZOLE 40 MG/VIAL IVP SCH (09:00)
[2018-09-01] MEDS: LEVOTHYROXINE 25 MCG TABLET PO SCH (09:00)
[2018-09-01] MEDS: FOLIC ACID 0.4 MG PO SCH (09:00)
[2018-09-01] MEDS ORDERED: PRASUGREL HCL 10 MG TABLET PO SCH ×2 (09:00)
[2018-09-01] MEDS: LOSARTAN 100 MG TABLET PO SCH (09:33)
[2018-09-01] MEDS: MULTIVITAMIN WITH MINERALS TABLET PO SCH (09:33)
[2018-09-01] MEDS: ASPIRIN 81 MG EC TAB PO SCH (09:33)
[2018-09-01] MEDS: PAROXETINE HCL 20 MG TABLET PO SCH (09:33)
[2018-09-01] MEDS: AMLODIPINE BESYLATE 5 MG TAB PO SCH (09:34)
[2018-09-01] MEDS: GABAPENTIN 300 MG CAPSULE PO SCH (09:34)
[2018-09-01] MEDS: CARVEDILOL 25 MG TABLET PO SCH (09:34)
[2018-09-01 11:13] VITALS: BP 123/72
== END 2018-09-01 14:32 | disposition home or self-care (01) | DRG 246 ==
LOC: EDH 06:31 → EDHIP 08:12 → 2AH 17:27
PROVIDERS: ADMIT Internal Medicine Nephrology; ATTEND Internal Medicine Nephrology
PROC: 5A1D70Z Performance of Urinary Filtration, Intermittent, Less than 6 Hours Per Day (ICD-10-PCS; 2018-08-30)
PROC: 027034Z Dilation of Coronary Artery, One Artery with Drug-eluting Intraluminal Device, Percutaneous Approach (ICD-10-PCS; principal; 2018-08-31)
PROC: 4A023N7 Measurement of Cardiac Sampling and Pressure, Left Heart, Percutaneous Approach (ICD-10-PCS; 2018-08-31)
PROC: B2111ZZ Fluoroscopy of Multiple Coronary Arteries using Low Osmolar Contrast (ICD-10-PCS; 2018-08-31)
PROC: B2151ZZ Fluoroscopy of Left Heart using Low Osmolar Contrast (ICD-10-PCS; 2018-08-31)
PROC: 5A1D70Z Performance of Urinary Filtration, Intermittent, Less than 6 Hours Per Day (ICD-10-PCS; 2018-09-01)
DX: I21.4 Non-ST elevation (NSTEMI) myocardial infarction (principal); J96.00 Acute respiratory failure, unspecified whether with hypoxia or hypercapnia; N18.6 End stage renal disease; I50.43 Acute on chronic combined systolic (congestive) and diastolic (congestive) heart failure; I13.2 Hypertensive heart and chronic kidney disease with heart failure and with stage 5 chronic kidney disease, or end stage renal disease; E87.1 Hypo-osmolality and hyponatremia; E87.5 Hyperkalemia; E11.21 Type 2 diabetes mellitus with diabetic nephropathy; E11.51 Type 2 diabetes mellitus with diabetic peripheral angiopathy without gangrene; E11.22 Type 2 diabetes mellitus with diabetic chronic kidney disease; D64.9 Anemia, unspecified; D72.829 Elevated white blood cell count, unspecified; E78.5 Hyperlipidemia, unspecified; E83.39 Other disorders of phosphorus metabolism; I25.10 Atherosclerotic heart disease of native coronary artery without angina pectoris; I25.2 Old myocardial infarction; Z83.3 Family history of diabetes mellitus; Z91.19 Patient's noncompliance with other medical treatment and regimen; Z87.891 Personal history of nicotine dependence; Z91.15 Patient's noncompliance with renal dialysis; Z99.2 Dependence on renal dialysis
CPT/HCPCS: 36415; 70450; 71045; 80048; 80053; 80305; 81001; 82550; 82948; 83735; 83874; 84100; 84484; 85014; 85018; 85025; 85027; 85610; 85730; 90935; 93005; 93458; 94640; 99156; 99157; C1760; C1769; C1887; C1894; C9113; C9600; G0378; J0583; J0610; J1644; J1815; J2250; J2270; J2405; J3010; J3490; J7030; Q9967

== ENCOUNTER 2018-09-26 00:14 | Emergency (ER) | payer MEDICARE ==
[~2018-09-26 00:14] MED LIST changes: +ACET1TAB25 PO; -AMLO10TA6 PO; +AMLO10TA7 PO; -ATOR20TA65 PO; +ATOR40TA71 PO; -HUM10VIA6 SQ; -LOSA100T20 PO; +LOSA100T58 PO; +PRAS10TA6 PO
[2018-09-26] MEDS ORDERED: ONDANSETRON HCL 4 MG/2 ML VIAL ONE (00:48)
[2018-09-26] MEDS ORDERED: MORPHINE SULFATE 4 MG/1ML SYG ONE (00:49)
[2018-09-26 01:58] LABS: BASOPHILS % (AUTO) 1.1 % (0.0-5.0); EOSINOPHILS % (AUTO) 3.5 % (0.0-8.0); HEMATOCRIT 31.4 % (42-54); LYMPHOCYTES % (AUTO) 17.2 % (21.0-51.0); MEAN CORPUSCULAR HEMOGLOBIN 31.5 pg (27.0-33.0); MEAN CORPUSCULAR HGB CONC 33.3 g/dL (32.0-36.0); MEAN CORPUSCULAR VOLUME 94.5 fL (79-99); MONOCYTES % (AUTO) 9.4 % (3.0-13.0); NEUTROPHILS % (AUTO) 68.8 % (40.0-77.0); PLATELET COUNT (AUTO) 179 K/uL (130-400); RED BLOOD CELL COUNT(AUTO) 3.32 MIL/uL (4.50-6.20); RED CELL DISTRIBUTION WIDTH 15.1 % (11.0-15.5); WHITE BLOOD COUNT (AUTO) 7.8 K/uL (4.8-10.8)
[2018-09-26 02:13] LABS: APPEARANCE,URINE Clear (CLEAR); BILIRUBIN,URINE Negative (NEGATIVE); COLOR,URINE Yellow (YELLOW); GLUCOSE, URINE (UA) >=1000 mg/dL (NEGATIVE); KETONES,URINE Negative (NEGATIVE); LEUKOCYTE ESTERASE ,URINE Negative (NEGATIVE); NITRATE,URINE Negative (NEGATIVE); OCCULT BLOOD,URINE Trace (NEGATIVE); PROTEIN,URINE >=1000 (NEGATIVE); UROBILINOGEN,URINE 0.2 mg/dL (0.2-1.0)
[2018-09-26 02:18] LABS: ALBUMIN 3.5 g/dL (3.5-5.0); BILIRUBIN,TOTAL 0.3 mg/dL (0.2-1.0); TOTAL PROTEIN, SERUM 7.1 g/dL (6.0-8.3)
[2018-09-26 02:23] LABS: BACTERIA,URINE Rare /HPF (None Seen); SQUAMOUS EPITHELIAL CELL,UR 0-2 /HPF (0-2)
[2018-09-26 02:33] LABS: CREATININE 8.5 mg/dL (0.5-1.5)
[2018-09-26] MEDS ORDERED: INSULIN HUMULIN R 100 UNIT/ML 3ML ONE (02:42)
== END 2018-09-26 04:13 | disposition home or self-care (01) ==
LOC: EDH 00:14
DX: M54.5 Low back pain (principal); E11.65 Type 2 diabetes mellitus with hyperglycemia; I12.0 Hypertensive chronic kidney disease with stage 5 chronic kidney disease or end stage renal disease; E11.22 Type 2 diabetes mellitus with diabetic chronic kidney disease; N18.6 End stage renal disease; E78.5 Hyperlipidemia, unspecified; I25.10 Atherosclerotic heart disease of native coronary artery without angina pectoris; Z95.1 Presence of aortocoronary bypass graft; Z99.2 Dependence on renal dialysis; Z79.4 Long term (current) use of insulin
CPT/HCPCS: 36415; 74176; 80053; 81001; 82550; 82948; 83690; 84484; 85025; 96374; 96375; 99284; J1815; J2270; J2405

== ENCOUNTER 2018-10-13 02:56 | Inpatient (IN) | payer MEDICARE | END 2018-10-17 16:15 | disposition home or self-care (01) | LOC: EDH 02:56 → 4CH 10-14 07:40 → EDHIP 04:57 | DX: I21.4 Non-ST elevation (NSTEMI) myocardial infarction (principal); I50.43 Acute on chronic combined systolic (congestive) and diastolic (congestive) heart failure; N18.6 End stage renal disease; I13.2 Hypertensive heart and chronic kidney disease with heart failure and with stage 5 chronic kidney disease, or end stage renal disease; I16.1 Hypertensive emergency; E11.21 Type 2 diabetes mellitus with diabetic nephropathy; D64.9 Anemia, unspecified; E11.22 Type 2 diabetes mellitus with diabetic chronic kidney disease; E11.51 Type 2 diabetes mellitus with diabetic peripheral angiopathy without gangrene; Z99.2 Dependence on renal dialysis; Z87.891 Personal history of nicotine dependence; I25.5 Ischemic cardiomyopathy; I25.10 Atherosclerotic heart disease of native coronary artery without angina pectoris ==

== ENCOUNTER 2018-12-14 20:55 | Emergency (ER) | payer MEDICARE ==
[~2018-12-14 20:55] MED LIST changes: +CLOP75TA14 PO; +HYDR25 PO; +INS7030 SQ; -PRAS10TA6 PO
[2018-12-14] MEDS ORDERED: CLINDAMYCIN HCL 150 MG CAP ONE (21:10)
== END 2018-12-14 21:16 | disposition home or self-care (01) ==
LOC: EDH 20:55
DX: L03.811 Cellulitis of head [any part, except face] (principal); I12.0 Hypertensive chronic kidney disease with stage 5 chronic kidney disease or end stage renal disease; E11.22 Type 2 diabetes mellitus with diabetic chronic kidney disease; N18.6 End stage renal disease; I25.10 Atherosclerotic heart disease of native coronary artery without angina pectoris; Z99.2 Dependence on renal dialysis; Z79.4 Long term (current) use of insulin

== ENCOUNTER 2019-01-22 01:06 | Emergency (ER) | payer MEDICARE ==
[2019-01-22] MEDS ORDERED: ORPHENADRINE CITRATE 30 MG/ML ML ONE (01:42)
[2019-01-22] MEDS ORDERED: LIDOCAINE 5% TOPICAL PATCH TP ONE (01:43)
== END 2019-01-22 02:47 | disposition home or self-care (01) ==
LOC: EDH 01:06
DX: R07.89 Other chest pain (principal); M62.830 Muscle spasm of back; I25.10 Atherosclerotic heart disease of native coronary artery without angina pectoris; E11.22 Type 2 diabetes mellitus with diabetic chronic kidney disease; I12.0 Hypertensive chronic kidney disease with stage 5 chronic kidney disease or end stage renal disease; N18.6 End stage renal disease; E78.5 Hyperlipidemia, unspecified; I25.2 Old myocardial infarction; F12.10 Cannabis abuse, uncomplicated; Z79.4 Long term (current) use of insulin; Z99.2 Dependence on renal dialysis; Z87.891 Personal history of nicotine dependence
CPT/HCPCS: 71045; 93005; 96372; 99284; J2360

== ENCOUNTER 2019-02-22 00:23 | Emergency (ER) | payer MEDICARE ==
[~2019-02-22 00:23] MED LIST changes: -CALC667T5 PO; +CALC667T6 PO
[2019-02-22] MEDS ORDERED: DIAZEPAM 5 MG TABLET ONE (01:45)
[2019-02-22] MEDS ORDERED: DEXAMETHASONE SOD PHOSPHATE 10MG/ML 1ML VIAL ONE (01:45)
[2019-02-22] MEDS ORDERED: LIDOCAINE 5% TOPICAL PATCH TP ONE (01:45)
[2019-03-17] MEDS ORDERED: ROPI1TAB11 PO (02:35)
[2019-03-17] MEDS ORDERED: OMEP40CA37 PO (02:35)
[2019-03-17] MEDS ORDERED: ONDA4TAB4 PO (02:35)
[2019-03-19] MEDS ORDERED: Nitroglycerin 0.4MG Sl Tab SL (13:50)
[2019-03-19] MEDS ORDERED: Isosorbide Mono 30MG Tab Sr PO (13:50)
== END 2019-02-22 02:08 | disposition home or self-care (01) ==
LOC: EDH 00:23
DX: M54.5 Low back pain (principal); G89.29 Other chronic pain; I12.0 Hypertensive chronic kidney disease with stage 5 chronic kidney disease or end stage renal disease; E11.22 Type 2 diabetes mellitus with diabetic chronic kidney disease; N18.6 End stage renal disease; I25.10 Atherosclerotic heart disease of native coronary artery without angina pectoris; I25.2 Old myocardial infarction; E78.5 Hyperlipidemia, unspecified; F12.10 Cannabis abuse, uncomplicated; Z72.0 Tobacco use; Z99.2 Dependence on renal dialysis; Z79.4 Long term (current) use of insulin
CPT/HCPCS: 96372; 99283; J1100

== ENCOUNTER 2019-03-01 19:27 | Emergency (ER) | payer MEDICARE ==
[~2019-03-01 19:27] MED LIST changes: +CALC667T5 PO; -CALC667T6 PO
[2019-03-01 20:09] LABS: BASOPHILS % (AUTO) 0.6 % (0.0-5.0); EOSINOPHILS % (AUTO) 1.6 % (0.0-8.0); HEMATOCRIT 32.5 % (42-54); LYMPHOCYTES % (AUTO) 13.4 % (21.0-51.0); MEAN CORPUSCULAR HEMOGLOBIN 32.4 pg (27.0-33.0); MEAN CORPUSCULAR HGB CONC 33.6 g/dL (32.0-36.0); MEAN CORPUSCULAR VOLUME 96.5 fL (79-99); NEUTROPHILS % (AUTO) 78.4 % (40.0-77.0); PLATELET COUNT (AUTO) 224 K/uL (130-400); RED BLOOD CELL COUNT(AUTO) 3.37 MIL/uL (4.50-6.20); RED CELL DISTRIBUTION WIDTH 15.4 % (11.0-15.5); WHITE BLOOD COUNT (AUTO) 9.4 K/uL (4.8-10.8)
[2019-03-01] MEDS ORDERED: SODIUM CHLORIDE 0.9% 250 ML IV ONE ×2 (20:10→22:25)
[2019-03-01 20:26] LABS: ALBUMIN 3.6 g/dL (3.5-5.0); BILIRUBIN,DIRECT 0.1 mg/dL (0.0-0.3); BILIRUBIN,TOTAL 0.3 mg/dL (0.2-1.0); POTASSIUM 5.1 mmol/L (3.5-5.1); TOTAL PROTEIN, SERUM 7.1 g/dL (6.0-8.3)
[2019-03-01 21:48] LABS: APPEARANCE,URINE SL CLOUDY (CLEAR); BILIRUBIN,URINE NEGATIVE (NEGATIVE); COLOR,URINE YELLOW (YELLOW); GLUCOSE, URINE (UA) >=1000 mg/dL (NEGATIVE); KETONES,URINE NEGATIVE (NEGATIVE); LEUKOCYTE ESTERASE ,URINE NEGATIVE (NEGATIVE); NITRATE,URINE NEGATIVE (NEGATIVE); OCCULT BLOOD,URINE TRACE-INTACT (NEGATIVE); PROTEIN,URINE >=300 mg/dL (NEGATIVE); UROBILINOGEN,URINE 0.2 mg/dL (0.2-1.0)
[2019-03-01 22:05] LABS: ABG HCO3 18.6 mmol/L (21.0-28.0); ABG OXYGEN SATURATION 87.7 % (95.0-99.0); ABG PCO2 38 mmHg (35-48)
[2019-03-01 22:12] LABS: BACTERIA,URINE Few /HPF (None Seen); SQUAMOUS EPITHELIAL CELL,UR Few /HPF (0-2)
[2019-03-01 22:14] LABS: COARSE GRANULAR CASTS,URINE 0-2 /LPF (None Seen); OTHER CASTS, URINE WAXY CASTS 1+ /LPF (None Seen)
[2019-03-01] MEDS ORDERED: CEFTRIAXONE SODIUM 1 GM ONE (22:24)
[2019-03-01] MEDS ORDERED: INSULIN HUMULIN R 100 UNIT/ML 3ML ONE (22:25)
[2019-03-02 00:36] LABS: POTASSIUM 4.5 mmol/L (3.5-5.1)
[2019-03-02 00:56] LABS: CREATININE 11.1 mg/dL (0.5-1.5)
== END 2019-03-02 01:21 | disposition home or self-care (01) ==
LOC: EDH 19:27
DX: E11.22 Type 2 diabetes mellitus with diabetic chronic kidney disease (principal); I12.0 Hypertensive chronic kidney disease with stage 5 chronic kidney disease or end stage renal disease; E11.65 Type 2 diabetes mellitus with hyperglycemia; N18.6 End stage renal disease; R11.2 Nausea with vomiting, unspecified; F12.10 Cannabis abuse, uncomplicated; I25.2 Old myocardial infarction; I25.10 Atherosclerotic heart disease of native coronary artery without angina pectoris; Z99.2 Dependence on renal dialysis; Z79.4 Long term (current) use of insulin; Z87.891 Personal history of nicotine dependence
CPT/HCPCS: 36415 ×2; 36600; 74176; 80048 ×2; 80076; 81001; 82803; 82948; 83690; 84484; 85025; 93005; 96374; 96375; 99285; J0696; J1815; J7030 ×2

== ENCOUNTER 2019-04-05 02:06 | Emergency (ER) | payer MEDICARE ==
[~2019-04-05 02:06] MED LIST changes: -ATOR40TA71 PO; -CALC667T5 PO; +CALC667T6 PO; -FOLI0.4T2 PO; +Isosorbide Mono 30MG Tab Sr PO; +Nitroglycerin 0.4MG Sl Tab SL; +OMEP40CA37 PO; +ONDA4TAB4 PO; +ROPI1TAB11 PO
[2019-04-05] MEDS ORDERED: KETOROLAC TROMETHAMINE 60 MG/2 ML VIAL ONE (03:04)
[2019-04-05] MEDS ORDERED: DIAZEPAM 5 MG TABLET ONE (03:08)
[2019-04-05] MEDS ORDERED: CYCLOBENZAPRINE HCL 10 MG TABLET ONE (03:33)
[2019-04-05] MEDS ORDERED: LIDOCAINE 5% TOPICAL PATCH TP ONE (03:57)
== END 2019-04-05 04:09 | disposition home or self-care (01) ==
LOC: EDH 02:06
DX: M62.830 Muscle spasm of back (principal); M54.5 Low back pain; I25.10 Atherosclerotic heart disease of native coronary artery without angina pectoris; E11.22 Type 2 diabetes mellitus with diabetic chronic kidney disease; I12.0 Hypertensive chronic kidney disease with stage 5 chronic kidney disease or end stage renal disease; N18.6 End stage renal disease; E78.5 Hyperlipidemia, unspecified; F12.10 Cannabis abuse, uncomplicated; I25.2 Old myocardial infarction; Z79.4 Long term (current) use of insulin; Z99.2 Dependence on renal dialysis; Z87.891 Personal history of nicotine dependence
CPT/HCPCS: 96372; 99284; J1885

== ENCOUNTER 2019-05-11 11:00 | Inpatient (IN) | payer MEDICARE | END 2019-05-15 17:55 | disposition home or self-care (01) | LOC: EDH 11:00 → EDHIP 15:57 → 2DH 16:20 | DX: E87.70 Fluid overload, unspecified (principal); N18.6 End stage renal disease; I12.0 Hypertensive chronic kidney disease with stage 5 chronic kidney disease or end stage renal disease; I24.9 Acute ischemic heart disease, unspecified; D64.9 Anemia, unspecified; Z91.19 Patient's noncompliance with other medical treatment and regimen; E11.22 Type 2 diabetes mellitus with diabetic chronic kidney disease; E11.51 Type 2 diabetes mellitus with diabetic peripheral angiopathy without gangrene; I16.0 Hypertensive urgency; I25.10 Atherosclerotic heart disease of native coronary artery without angina pectoris; Z99.2 Dependence on renal dialysis; Q21.9 Congenital malformation of cardiac septum, unspecified; E11.21 Type 2 diabetes mellitus with diabetic nephropathy ==

== ENCOUNTER → 2019-06-15 | Outpatient (CLI) | payer MEDICARE ==
[~2019-06-15] MED LIST changes: +HYDR-4154 PO; -HYDR25 PO; +OMEP40CA13 PO; -OMEP40CA37 PO
== END | disposition home or self-care (01) ==
LOC: RAH 12:49
PROVIDERS: ATTEND Internal Medicine Cardiovascular Disease
DX: I51.7 Cardiomegaly (principal); J90 Pleural effusion, not elsewhere classified
CPT/HCPCS: 71046

== ENCOUNTER → 2019-08-21 | Outpatient (CLI) | payer MEDICARE | END | disposition home or self-care (01) | LOC: SHCH 07:36 | PROVIDERS: ATTEND Internal Medicine Cardiovascular Disease | DX: I34.0 Nonrheumatic mitral (valve) insufficiency (principal); I11.9 Hypertensive heart disease without heart failure | CPT/HCPCS: 93306 ==

== ENCOUNTER 2020-02-22 11:25 | Inpatient (IN) | payer MEDICARE ==
[~2020-02-22] VITALS: Ht 167.6 cm; Wt 70.5 kg
[2020-02-22] MEDS ORDERED: METRONIDAZOLE 500MG/100ML BAG 100 ML ONE (13:24)
[2020-02-22] MEDS ORDERED: ZOSYN 3.375GM+NS 50ML 50 ML IV ONE (13:24)
[2020-02-22] MEDS ORDERED: FUROSEMIDE 10 MG/ML 4ML VIAL ONE (13:25)
[2020-02-22] MEDS ORDERED: ONDANSETRON HCL 4 MG/2 ML VIAL ONE (13:26)
[2020-02-22] MEDS ORDERED: HYDROMORPHONE HCL 0.5 MG/0.5 ML ML ONE (13:27)
[2020-02-22] MEDS ORDERED: IPRATROPIUM/ALBUTEROL SULFATE 3 ML SOLUTION IH ONE (13:47)
[2020-02-22] MEDS ORDERED: VANCOMYCIN 1GM+NS 250ML 250 ML IV ONE (14:48)
[2020-02-22 15:29] VITALS: BP 161/92; PULSE 78; RESP 22; TEMP 98
--- NOTE | 2020-02-22 15:30 | NUR ---
ADMISSION PT ORIENTED TO ROOM AND CALL LIGHT,PENDING HOME MEDICATIONS. WOUND TO LEFT CHEST MEASURES 1 IN X 3/4 IN, WOUND TO RIGHT LOWER ANTERIOR LEG MEASURES 1/4 X 1/2 INCH, PT STATES CHRONIC. PENILE AREA HAS NECROTIC LIKE AREAS TO TIP, PT STATES CHRONIC AND PENDING INTERVENTION.
[2020-02-22] MEDS ORDERED: VANCOMYCIN PROTOCOL PER PHARMACY IV SCH (15:45)
--- NOTE | 2020-02-22 16:10 | NUR ---
CONSULT DR HNASON AWARE OF CONSULT
[2020-02-22 16:52] VITALS: BP 161/92; PULSE 78; RESP 22; TEMP 98
[2020-02-22] MEDS: HYDROMORPHONE 1 MG/1 ML AMP IVP PRN (17:43)
[2020-02-22] MEDS ORDERED: HYDROMORPHONE HCL 0.5 MG/0.5 ML ML IVP PRN ×2 (17:45)
--- NOTE | 2020-02-22 18:00 | NUR ---
ABNORMAL LAB CALL PLACED TO DR BEAN TO MAKE AWARE OF ABNORMAL LAB, CALL BACK NUMBER LEFT
[2020-02-22 19:00] VITALS: BP 164/78; PULSE 70; RESP 19; TEMP 98.3
[2020-02-22] MEDS: INSULIN HUMULIN R 100 UNIT/ML 3ML SQ SCH (21:00)
[2020-02-22] MEDS: ZOSYN 3.375GM+NS 50ML 50 ML IV SCH (23:20)
[2020-02-23] VITALS (23 sets, daily range): BP systolic 132–178; BP diastolic 69–82; PULSE 71–77; RESP 12–20; TEMP 96.9–98
[2020-02-23] MEDS: HYDROMORPHONE 1 MG/1 ML AMP IVP PRN ×3 (03:14→12:28)
--- NOTE | 2020-02-23 05:30 | NUR ---
NOTE 0504 PATIENT REPORTS HAVING PAIN ON ABDOMEN. SAYS HE HAS NOT HAD IT BEFORE THERE. HE IS GUARDING, MOANING, AND GOING TO TOILET BECAUSE HE THINKS HE FEELS URGE FOR A BM. HE DOES NOT HAVE A BM. TOOK BP 188/91 HR 77 RR 16 O2 SAT 99. ASKED IF HE HAD NAUSEA OR VOMITING AND SAID NOT AT THIS TIME, BUT EARLIER BEFORE PAIN STARTED FELT A LITTLE NAUSEA. LAST MEDICATED WITH DILAUDID AT 0314. [address] Issa RIBEIRO (ONCALL FOR DR. BEAN) [phone] RIBEIRO PROVIDED BRIEF REPORT OF PATIENT AND THE ABOVE FINDINGS. ORDERS RECEIVED TO GIVE ONE EXTRA DOSE OF 1 MG DILAUDID IV NOW. UPDATED PATIENT.
[2020-02-23] MEDS: ONDANSETRON 4 MG TABLET PO PRN (05:43)
[2020-02-23] MEDS: INSULIN HUMULIN R 100 UNIT/ML 3ML SQ SCH ×3 (07:30→21:00)
[2020-02-23] MEDS: ZOSYN 3.375GM+NS 50ML 50 ML IV SCH ×2 (09:45→21:32)
--- NOTE | 2020-02-23 11:00 | NUR ---
DR. HANSON HERE REVIEW PT . STATUS, AND SPOKE WITH PT .REGARDING SURGERY, REVIEW. RISK ,AND PROCEDURE WITH PT AGREE FOR SURGERY.
--- NOTE | 2020-02-23 11:01 | NUR ---
PLACED NPO FOR SURGERY, EDUCATION DONE . CALL LIGHT IN REACH.,
--- NOTE | 2020-02-23 14:03 | NUR ---
RD NOTIFICATION Pt admitted with Scrotal and Penile gangrene. Pt with NPO pending procedure. Pt with Ulcer wounds x2. Pt with altered Renal labs (BUN 43, Cr 7.7, GFR 8). Recommend 75gm CC, Renal non dialysis diet order post procedure Recommend Adan BID Recommend 500mg Vitamin C (BID), 220mg ZnSO4 (QD) for wound healing support 60mL ProMod BID RD to continue to monitor. Please notify RD as additional nutrition concerns arise. Thank you. Addendum: 02/23/20 at [address] RD Amended: Links added.
--- NOTE | 2020-02-23 14:40 | NUR ---
OR STAFF , SISSY FISH RN. CALED AND STATED THAT , PT NEEDED CARDIAC CLEARANCE. FROM THEIR STAND POINT ANESTHESIA. AND THAT SHE WOULD CALLED AND PLACE TO ORDER FOR A CARDIOGIST CONSULATION AND WOULD CALL
--- NOTE | 2020-02-23 15:15 | NUR ---
PER. OR STAFF NURSE, SISSY ORTIZ RN. INFORMATION STATUS . DUE TO PT HEART HISTORY ,CALLED PMichelle GARCIA . [facility] // UNDER DR. MARYAM OLSEN. FOR CARDIAC CLEARANCE. STATED TO CALL OFFSET ASSISTANT PRESS OPERATOR IF CLEARANCE. IS DONE.
--- NOTE | 2020-02-23 16:47 | NUR ---
CARDIOLOGY CONSULTATION PER OR . TO SEE PT . FOR CARDIAC CLEARANCE, ROB MANNING PER ASSESSMENT . AND CONSULTION RECOMMENDATION MODERATE TO HIGH RISK
[2020-02-23] MEDS ORDERED: SUCCINYLCHOLINE CHLORIDE 20 MG/ML 10 ML VIAL ONE (17:13)
[2020-02-23] MEDS ORDERED: KETAMINE 50MG/ML SYRINGE 50 MG/ML DISP.SYRIN IV ONE ×2 (17:13→20:16)
[2020-02-23] MEDS ORDERED: ETOMIDATE 2 MG/ML 10 ML VIAL ONE (17:13)
--- NOTE | 2020-02-23 17:20 | NUR ---
TO OR. VIA BED ,WITH OR STAFF NURSE .SISSY FISH RN. AT THE BEDSIDE
[2020-02-23] MEDS ORDERED: SODIUM CHLORIDE 0.9% 1000ML 1,000 ML IV ONE (17:36)
[2020-02-23] MEDS ORDERED: FENTANYL CITRATE PF 50 MCG/1 ML 2ML VIAL ONE (17:58)
[2020-02-23] MEDS ORDERED: BUPIVACAINE/PF 0.25% 30ML VIAL IJ ONE (18:08)
[2020-02-23] MEDS ORDERED: GENTAMICIN SULFATE 80 MG/2 ML VIAL ONE ×2 (18:08→19:03)
[2020-02-23] MEDS ORDERED: PROPOFOL 1000 MG/100 ML 100 ML IV ONE (18:08)
[2020-02-23] MEDS ORDERED: MIDAZOLAM HCL 1 MG/ML 2ML VIAL ONE (20:17)
[2020-02-23] MEDS ORDERED: ONDANSETRON HCL 4 MG/2 ML VIAL ONE (20:44)
[2020-02-23] MEDS ORDERED: GLYCOPYRROLATE 1 MG/5 ML SYRINGE ONE (20:46)
[2020-02-23] MEDS ORDERED: BACITRACIN 28.4 GM OINT TP ONE (20:52)
[2020-02-23] MEDS ORDERED: MORPHINE SULFATE 4 MG/1ML SYG ONE (21:21)
[2020-02-23] MEDS ORDERED: MEPERIDINE-PF 25 MG/ML SYG ONE (21:36)
[2020-02-24] VITALS (10 sets, daily range): BP systolic 142–177; BP diastolic 69–92; PULSE 66–79; RESP 14–20; TEMP 97.5–98.7
[2020-02-24] MEDS: HYDROMORPHONE 1 MG/1 ML AMP IVP PRN ×4 (00:01→22:46)
[2020-02-24] MEDS ORDERED: HYDROMORPHONE HCL 2 MG/ML VIAL IVP STA (03:34)
--- NOTE | 2020-02-24 03:36 | NUR ---
PAIN SPOKE WITH DR Andrews RIBEIRO AND INFORMED HIM PT IS IN A LOT OF PAIN, AND THAT DILAUDID 1MG WAS GIVEN AT MIDNIGHT AND IS ORDERED EVERY 6 HRS. Andrews RIBEIRO ORDERED 1X EXTRA DOSE OF DIL 1MG TO BE GIVEN NOW TO PATIENT.
[2020-02-24] MEDS: INSULIN HUMULIN R 100 UNIT/ML 3ML SQ SCH ×4 (05:30→21:00)
[2020-02-24] MEDS: MUPIROCIN OINTMENT 22 GM TUBE TP SCH ×3 (09:00→21:14)
[2020-02-24] MEDS: CARVEDILOL 6.25 MG TABLET PO SCH ×3 (09:00→21:13)
[2020-02-24] MEDS: AMLODIPINE BESYLATE 5 MG TAB PO SCH ×2 (09:00→13:27)
[2020-02-24] MEDS: PAROXETINE HCL 20 MG TABLET PO SCH ×2 (09:00→13:27)
[2020-02-24] MEDS: ZOSYN 3.375GM+NS 50ML 50 ML IV SCH ×3 (09:00→21:15)
[2020-02-24] MEDS: LOSARTAN 100 MG TABLET PO SCH ×2 (09:00→13:27)
--- NOTE | 2020-02-24 11:10 | NUR ---
HD COMPLETED. TOLERATED W/O C/O. SPOUSE AT BEDSIDE.
--- NOTE | 2020-02-24 11:32 | NUR ---
DCP CM met with pt discussed dc plans. Pt is semi-independent prior to admission, lives at home with spouse. Pt has a provider 19.5hrs/wk, goes to [facility]. Pt goes to [facility] @[phone], [facility] provides transportation. Denies any other equipments/servcies. Feels safe to go back home, spouse able to assist with transportation and needs as necessary. DC plan to home once stable. CM to cont to follow up. Addendum: 02/24/20 at 1135 by SHIRIN MAR LVN CM Amended: Links added.
--- NOTE | 2020-02-24 16:00 | NUR ---
1220 patient received BPCI Letter.
--- NOTE | 2020-02-24 17:10 | NUR ---
RESTING IN BED WITH EYES CLOSED, RESP.'S EVEN AND UNLABORED. CALL LIGHT WITHIN REACH. SPOUSE AT BEDSIDE.
[2020-02-24] MEDS: ROPINIROLE HCL 1 MG TABLET PO SCH (21:13)
[2020-02-24] MEDS: ATORVASTATIN CALCIUM 20 MG TABLET PO SCH (21:13)
[2020-02-25 03:47] VITALS: BP 148/77; PULSE 71; RESP 18; TEMP 98
[2020-02-25] MEDS: INSULIN HUMULIN R 100 UNIT/ML 3ML SQ SCH ×4 (05:38→21:24)
[2020-02-25] MEDS: HYDROMORPHONE 1 MG/1 ML AMP IVP PRN ×3 (05:40→18:13)
[2020-02-25 08:39] VITALS: BP 149/80; PULSE 68; RESP 18; TEMP 97.8
[2020-02-25] MEDS: AMLODIPINE BESYLATE 5 MG TAB PO SCH (09:53)
[2020-02-25] MEDS: CARVEDILOL 6.25 MG TABLET PO SCH ×2 (09:53→20:44)
[2020-02-25] MEDS: APIXABAN 5 MG TABLET PO SCH ×2 (09:54→20:43)
[2020-02-25] MEDS: ZOSYN 3.375GM+NS 50ML 50 ML IV SCH ×2 (09:54→20:44)
[2020-02-25] MEDS: PAROXETINE HCL 20 MG TABLET PO SCH (09:54)
[2020-02-25] MEDS: LOSARTAN 100 MG TABLET PO SCH (09:54)
[2020-02-25] MEDS: MUPIROCIN OINTMENT 22 GM TUBE TP SCH ×2 (09:56→20:45)
[2020-02-25 12:45] VITALS: BP 148/76; PULSE 64; RESP 18; TEMP 97.8
--- NOTE | 2020-02-25 13:30 | NUR ---
DR. BEAN IN ROOM SPEAKING WITH PT.; PT.'S SPOUSE AT BEDSIDE. QUESTIONS ANSWERED BY DR. BEAN.
--- NOTE | 2020-02-25 14:31 | NUR ---
NUTRITION EDUCATION CHIRAG provided Diabetes, Heart Healthy, Wound Healing Nutrition Therapy to Pt's . Pt asleep with covers over head at time of visit. reports previous education received. CHIRAG reviewed reference materials with and answered questions. verbalized understanding. Addendum: 02/25/20 at [address] Amended: Links added.
[2020-02-25 16:12] VITALS: BP 121/70; PULSE 63; RESP 18; TEMP 99.8
[2020-02-25 19:34] VITALS: BP 141/75; PULSE 66; RESP 18; TEMP 97.5
[2020-02-25] MEDS: ROPINIROLE HCL 1 MG TABLET PO SCH (20:43)
[2020-02-25] MEDS: ATORVASTATIN CALCIUM 20 MG TABLET PO SCH (20:44)
[2020-02-25 23:55] VITALS: BP 147/78; PULSE 67; RESP 18; TEMP 97.7
[2020-02-26] MEDS: HYDROMORPHONE 1 MG/1 ML AMP IVP PRN ×5 (00:26→19:30)
[2020-02-26 03:42] VITALS: BP 143/79; PULSE 69; RESP 18; TEMP 97.8
[2020-02-26] MEDS: INSULIN HUMULIN R 100 UNIT/ML 3ML SQ SCH ×4 (05:39→20:26)
[2020-02-26 08:00] VITALS: BP 150/74; PULSE 82; RESP 19; TEMP 97.7
[2020-02-26] MEDS: APIXABAN 5 MG TABLET PO SCH ×2 (09:00→20:25)
[2020-02-26] MEDS: CARVEDILOL 6.25 MG TABLET PO SCH ×2 (09:00→20:26)
[2020-02-26] MEDS: LOSARTAN 100 MG TABLET PO SCH (09:00)
[2020-02-26] MEDS: AMLODIPINE BESYLATE 5 MG TAB PO SCH (09:00)
[2020-02-26] MEDS: ZOSYN 3.375GM+NS 50ML 50 ML IV SCH ×2 (09:14→20:26)
[2020-02-26] MEDS ORDERED: HYDROMORPHONE HCL 2 MG/ML VIAL IVP SCH (09:15)
[2020-02-26 12:00] VITALS: BP 103/65; PULSE 74; RESP 18; TEMP 97.6
[2020-02-26] MEDS: PAROXETINE HCL 20 MG TABLET PO SCH (13:01)
[2020-02-26] MEDS: MUPIROCIN OINTMENT 22 GM TUBE TP SCH ×2 (13:02→21:19)
[2020-02-26 16:00] VITALS: BP 160/56; PULSE 74; RESP 18; TEMP 97.5
[2020-02-26] MEDS: ACETAMINOPHEN 325 MG TAB PO PRN ×2 (17:00→22:46)
[2020-02-26] MEDS: ROPINIROLE HCL 1 MG TABLET PO SCH (19:30)
[2020-02-26 19:31] VITALS: BP 156/79; PULSE 73; RESP 17; TEMP 98.1
[2020-02-26] MEDS: ATORVASTATIN CALCIUM 20 MG TABLET PO SCH (20:25)
[2020-02-26 23:29] VITALS: BP 151/71; PULSE 77; RESP 20; TEMP 97.9
[2020-02-26] MEDS: ONDANSETRON 4 MG TABLET PO PRN (23:36)
[2020-02-27] MEDS: HYDROMORPHONE 1 MG/1 ML AMP IVP PRN ×4 (02:02→20:51)
[2020-02-27 03:50] VITALS: BP 159/76; PULSE 76; RESP 17; TEMP 97.9
[2020-02-27] MEDS: ACETAMINOPHEN 325 MG TAB PO PRN ×3 (04:59→16:01)
[2020-02-27] MEDS: INSULIN HUMULIN R 100 UNIT/ML 3ML SQ SCH ×4 (06:00→21:09)
[2020-02-27] MEDS: LOSARTAN 100 MG TABLET PO SCH (08:06)
[2020-02-27] MEDS: CARVEDILOL 6.25 MG TABLET PO SCH ×2 (08:06→20:43)
[2020-02-27] MEDS: AMLODIPINE BESYLATE 5 MG TAB PO SCH (08:06)
[2020-02-27] MEDS: PAROXETINE HCL 20 MG TABLET PO SCH (08:06)
[2020-02-27] MEDS: APIXABAN 5 MG TABLET PO SCH ×2 (08:07→20:42)
[2020-02-27] MEDS: MUPIROCIN OINTMENT 22 GM TUBE TP SCH ×2 (08:07→21:07)
[2020-02-27] MEDS: ZOSYN 3.375GM+NS 50ML 50 ML IV SCH ×2 (08:13→20:43)
[2020-02-27 08:32] VITALS: BP 161/78; PULSE 76; RESP 20; TEMP 99.9
[2020-02-27 11:41] VITALS: BP 139/73; PULSE 73; RESP 20; TEMP 98.1
[2020-02-27 19:04] VITALS: BP 141/72; PULSE 71; RESP 20; TEMP 99.1
[2020-02-27 19:40] VITALS: BP 155/76; PULSE 74; RESP 18; TEMP 97.9
--- NOTE | 2020-02-27 20:00 | NUR ---
PM Assessment Received pt awake watching TV, routine assessment done, plan of care discuss, I verified who will be assisting him to do the wound care, pt stated his will be helping him on discharge. Pt requesting if he can have his pain medication earlier than schedule, I explained it's being ordered every 6 hours, & I can give him a dose now as claimed with pain scale of 10, surgical pain. Pt also encourage to start ambulation stated will do in AM.
[2020-02-27] MEDS: ROPINIROLE HCL 1 MG TABLET PO SCH (20:42)
[2020-02-27] MEDS: ATORVASTATIN CALCIUM 20 MG TABLET PO SCH (20:43)
[2020-02-27 23:41] VITALS: BP 136/71; PULSE 75; RESP 17; TEMP 98.1
[2020-02-28] MEDS: ACETAMINOPHEN 325 MG TAB PO PRN ×3 (00:41→17:12)
[2020-02-28] MEDS: HYDROMORPHONE 1 MG/1 ML AMP IVP PRN ×4 (03:05→21:11)
[2020-02-28 03:30] VITALS: BP 131/68; PULSE 72; RESP 17; TEMP 97.9
[2020-02-28] MEDS: INSULIN HUMULIN R 100 UNIT/ML 3ML SQ SCH ×4 (06:18→20:10)
[2020-02-28 07:00] VITALS: BP 148/69; PULSE 73; RESP 17; TEMP 98.1
[2020-02-28] MEDS: LOSARTAN 100 MG TABLET PO SCH (09:05)
[2020-02-28] MEDS: APIXABAN 5 MG TABLET PO SCH ×2 (09:06→20:02)
[2020-02-28] MEDS: PAROXETINE HCL 20 MG TABLET PO SCH (09:06)
[2020-02-28] MEDS: AMLODIPINE BESYLATE 5 MG TAB PO SCH (09:06)
[2020-02-28] MEDS: CARVEDILOL 6.25 MG TABLET PO SCH ×2 (09:07→20:03)
[2020-02-28] MEDS: MUPIROCIN OINTMENT 22 GM TUBE TP SCH ×2 (09:07→20:03)
[2020-02-28] MEDS: ZOSYN 3.375GM+NS 50ML 50 ML IV SCH ×2 (09:07→20:02)
[2020-02-28 11:30] VITALS: BP 143/72; PULSE 71; RESP 18; TEMP 98
[2020-02-28 15:30] VITALS: BP 136/77; PULSE 74; RESP 18; TEMP 97.8
[2020-02-28] MEDS: ROPINIROLE HCL 1 MG TABLET PO SCH (20:02)
[2020-02-28] MEDS: ATORVASTATIN CALCIUM 20 MG TABLET PO SCH (20:03)
[2020-02-28 20:36] VITALS: BP 147/71; PULSE 73; RESP 20; TEMP 97.9
[2020-02-29 00:10] VITALS: BP 134/72; PULSE 69; RESP 20; TEMP 97.5
[2020-02-29] MEDS: ACETAMINOPHEN 325 MG TAB PO PRN ×2 (00:36→06:21)
[2020-02-29] MEDS: HYDROMORPHONE 1 MG/1 ML AMP IVP PRN ×2 (03:22→09:14)
[2020-02-29 04:17] VITALS: BP 144/72; PULSE 70; RESP 20; TEMP 97.7
--- NOTE | 2020-02-29 04:23 | NUR ---
PAIN Pt constantly moans and screams,constantly asking for Dilaudid.
[2020-02-29] MEDS: INSULIN HUMULIN R 100 UNIT/ML 3ML SQ SCH ×4 (06:24→20:49)
[2020-02-29] MEDS ORDERED: COMPOUND IV REFRIGERATED 1 EACH IVSOLN MISC PRN (07:15)
[2020-02-29 08:30] VITALS: BP 135/69; PULSE 74; RESP 18; TEMP 98
[2020-02-29] MEDS: CARVEDILOL 6.25 MG TABLET PO SCH ×2 (09:00→20:48)
[2020-02-29] MEDS: AMLODIPINE BESYLATE 5 MG TAB PO SCH (09:00)
[2020-02-29] MEDS: LOSARTAN 100 MG TABLET PO SCH (09:00)
[2020-02-29] MEDS: ZOSYN 3.375GM+NS 50ML 50 ML IV SCH ×3 (09:00→20:47)
[2020-02-29] MEDS: APIXABAN 5 MG TABLET PO SCH ×2 (09:00→20:48)
[2020-02-29] MEDS ORDERED: VANCOMYCIN 1GM+NS 250ML 250 ML IV SCH (09:00)
[2020-02-29] MEDS: PAROXETINE HCL 20 MG TABLET PO SCH (09:00)
[2020-02-29] MEDS: MUPIROCIN OINTMENT 22 GM TUBE TP SCH ×2 (09:22→21:23)
[2020-02-29 11:40] VITALS: BP 147/59; PULSE 77; RESP 18; TEMP 98.5
--- NOTE | 2020-02-29 12:55 | NUR ---
DR. BEAN IN ROOM SPEAKING WITH PT. DR. BEAN MADE AWARE BY THIS NURSE PT HAS BEEN YELLING THROUGHOUT THE MORNING ASKING FOR MORE PAIN MEDICINE. DR. BEAN SPEAKING WITH RE:PAIN MANAGEMENT AND INFORMING PT. HE WILL NEED EXTRA DIALYSIS TOMORROW DUE TO PT. STOPPING HD TODAY. PT. STATES," WHEN I WAS AT [facility] THEY GAVE ME THE PAIN MEDICINE (DILAUDID) EVERY 4HRS." ORDERS RECEIVED FROM DR. BEAN.
[2020-02-29] MEDS: GABAPENTIN 100 MG CAPSULE PO SCH (13:30)
[2020-02-29] MEDS: HYDROMORPHONE HCL 0.5 MG/0.5 ML ML IVP PRN ×3 (13:30→20:50)
[2020-02-29] MEDS: VANCOMYCIN 1.25 GM in SODIUM CHLORIDE 0.9% 250 ML IV SCH ×2 (15:00→17:34)
[2020-02-29 16:30] VITALS: BP 153/75; PULSE 80; RESP 18; TEMP 97.5
[2020-02-29] MEDS: SEVELAMER HCL 800 MG TABLET PO SCH (17:33)
[2020-02-29 20:00] VITALS: BP 157/78; PULSE 82; RESP 20; TEMP 98
[2020-02-29] MEDS: ATORVASTATIN CALCIUM 20 MG TABLET PO SCH (20:48)
[2020-02-29] MEDS: ROPINIROLE HCL 1 MG TABLET PO SCH (20:48)
[2020-03-01] VITALS (7 sets, daily range): BP systolic 125–163; BP diastolic 72–81; PULSE 72–89; RESP 18–20; TEMP 97.4–98.4
[2020-03-01] MEDS: HYDROMORPHONE HCL 0.5 MG/0.5 ML ML IVP PRN ×6 (01:02→22:08)
[2020-03-01] MEDS: ACETAMINOPHEN 325 MG TAB PO PRN ×2 (03:39→11:50)
[2020-03-01] MEDS: INSULIN HUMULIN R 100 UNIT/ML 3ML SQ SCH ×4 (05:44→22:06)
[2020-03-01] MEDS: AMLODIPINE BESYLATE 5 MG TAB PO SCH (09:00)
[2020-03-01] MEDS: GABAPENTIN 100 MG CAPSULE PO SCH ×2 (09:00→13:55)
[2020-03-01] MEDS: ZOSYN 3.375GM+NS 50ML 50 ML IV SCH ×2 (09:00→22:05)
[2020-03-01] MEDS: CARVEDILOL 6.25 MG TABLET PO SCH ×2 (09:00→22:05)
[2020-03-01] MEDS: LOSARTAN 100 MG TABLET PO SCH (09:00)
[2020-03-01] MEDS: SEVELAMER HCL 800 MG TABLET PO SCH ×3 (09:11→16:34)
[2020-03-01] MEDS: APIXABAN 5 MG TABLET PO SCH ×2 (09:12→22:05)
[2020-03-01] MEDS: PAROXETINE HCL 20 MG TABLET PO SCH (09:12)
[2020-03-01] MEDS: MUPIROCIN OINTMENT 22 GM TUBE TP SCH ×2 (09:14→22:08)
--- NOTE | 2020-03-01 12:02 | NUR ---
HD COMPLETED. DR. BEAN STANDING IN DOORWAY AND INFORMED BY THIS NURSE PT. IS REQUESTING HYDROMORPHONE MORE FREQUENTLY THAN Q4 HRS, DR. BEAN VERBALIZED UNDERSTANDING AND DECLINED TO INCREASE FREQUENCY. ORDER FOR LABS ONLY RECEIVED, FOR TOMORROW AM.
[2020-03-01] MEDS: ONDANSETRON 4 MG TABLET PO PRN (13:56)
--- NOTE | 2020-03-01 16:23 | NUR ---
CHIRAG FOLLOW UP Multiple Trigger notifications received. CHIRAG provided previous nutrition education with . Pt asleep at time of visit. Pt with poor PO intake. No report of GI distress. Pt sleeps a lot. ESRD. Dialysis diet order in place. Recommend Nepro BID. CHIRAG to continue to monitor. Addendum: 03/01/20 at [address] RD Amended: Links added.
[2020-03-01] MEDS: ATORVASTATIN CALCIUM 20 MG TABLET PO SCH (22:05)
[2020-03-01] MEDS: ROPINIROLE HCL 1 MG TABLET PO SCH (22:07)
[2020-03-02] MEDS: HYDROMORPHONE HCL 0.5 MG/0.5 ML ML IVP PRN ×4 (02:24→14:07)
[2020-03-02 03:55] VITALS: BP 136/68; PULSE 77; RESP 20; TEMP 97.6
[2020-03-02] MEDS: ACETAMINOPHEN 325 MG TAB PO PRN ×3 (04:55→21:05)
[2020-03-02] MEDS: INSULIN HUMULIN R 100 UNIT/ML 3ML SQ SCH ×4 (05:45→21:00)
[2020-03-02] MEDS: SEVELAMER HCL 800 MG TABLET PO SCH ×3 (08:00→16:53)
[2020-03-02 08:30] VITALS: BP 135/67; PULSE 77; RESP 20; TEMP 97.7
[2020-03-02 11:30] VITALS: BP 145/64; PULSE 79; RESP 18; TEMP 98.1
--- NOTE | 2020-03-02 12:00 | NUR ---
HD PT AWAKE AND ORIENTED, TOLERATED HD .
[2020-03-02] MEDS: AMLODIPINE BESYLATE 5 MG TAB PO SCH (12:03)
[2020-03-02] MEDS: APIXABAN 5 MG TABLET PO SCH ×2 (12:03→21:04)
[2020-03-02] MEDS: PAROXETINE HCL 20 MG TABLET PO SCH (12:03)
[2020-03-02] MEDS: GABAPENTIN 100 MG CAPSULE PO SCH (12:04)
[2020-03-02] MEDS: CARVEDILOL 6.25 MG TABLET PO SCH ×2 (12:04→21:03)
[2020-03-02] MEDS: ZOSYN 3.375GM+NS 50ML 50 ML IV SCH ×2 (12:04→21:05)
[2020-03-02] MEDS: MUPIROCIN OINTMENT 22 GM TUBE TP SCH ×2 (12:16→21:05)
[2020-03-02] MEDS: LOSARTAN 100 MG TABLET PO SCH (14:10)
[2020-03-02] MEDS: VANCOMYCIN 1.25 GM in SODIUM CHLORIDE 0.9% 250 ML IV SCH (15:26)
[2020-03-02 16:00] VITALS: BP 150/79; PULSE 87; RESP 18; TEMP 97.8
--- NOTE | 2020-03-02 18:00 | NUR ---
F/C F/C DISCONTINUED ORDERED, TOLERATED WELL.
[2020-03-02 19:00] VITALS: BP 123/67; PULSE 82; RESP 20; TEMP 97.9
[2020-03-02] MEDS: TRAMADOL HCL 50 MG TABLET PO PRN (19:04)
[2020-03-02] MEDS: ROPINIROLE HCL 1 MG TABLET PO SCH (21:04)
[2020-03-02] MEDS: ATORVASTATIN CALCIUM 20 MG TABLET PO SCH (21:05)
[2020-03-03] VITALS: BP 126/69; PULSE 82; RESP 18; TEMP 98.3
[2020-03-03] MEDS: ACETAMINOPHEN 325 MG TAB PO PRN ×4 (01:50→18:21)
[2020-03-03 04:00] VITALS: BP 143/75; PULSE 80; RESP 20; TEMP 97.6
[2020-03-03] MEDS: INSULIN HUMULIN R 100 UNIT/ML 3ML SQ SCH ×4 (06:00→22:13)
[2020-03-03 08:00] VITALS: BP 134/74; PULSE 81; RESP 18; TEMP 97.3
[2020-03-03] MEDS: SEVELAMER HCL 800 MG TABLET PO SCH ×3 (08:59→16:49)
[2020-03-03] MEDS: AMLODIPINE BESYLATE 5 MG TAB PO SCH (09:00)
[2020-03-03] MEDS: CARVEDILOL 6.25 MG TABLET PO SCH ×2 (09:00→22:11)
[2020-03-03] MEDS: PAROXETINE HCL 20 MG TABLET PO SCH (09:00)
[2020-03-03] MEDS: GABAPENTIN 100 MG CAPSULE PO SCH (09:00)
[2020-03-03] MEDS: LOSARTAN 100 MG TABLET PO SCH (09:00)
[2020-03-03] MEDS: APIXABAN 5 MG TABLET PO SCH ×2 (09:01→22:10)
[2020-03-03] MEDS: TRAMADOL HCL 50 MG TABLET PO PRN (09:01)
[2020-03-03] MEDS: ZOSYN 3.375GM+NS 50ML 50 ML IV SCH (09:03)
[2020-03-03] MEDS: MUPIROCIN OINTMENT 22 GM TUBE TP SCH ×2 (09:07→22:14)
[2020-03-03 12:00] VITALS: BP 140/72; PULSE 84; RESP 18; TEMP 98.2
[2020-03-03] MEDS: ACETAMINOPHEN-CODEINE 300/30MG TAB PO PRN ×2 (14:45→22:11)
--- NOTE | 2020-03-03 15:15 | NUR ---
DR MARGIE HANSON IN TO SEE PT, ASSESSED PT, AWARE OF INCISION SLIGHTLY DEHISCED TO LOWER ASPECT AND TRACE AMOUNT OF DRAINAGE FROM AREA WHERE FC WAS INSERTED. STATES TO KEEP AREA CLEAN AND APPLY ANTIBIOTIC OINTMENT ORDERED. STATES PT CAN F/U IN OFFICE IN 2 TO 3 WEEKS.
[2020-03-03 16:00] VITALS: BP 140/74; PULSE 81; RESP 18; TEMP 98.1
--- NOTE | 2020-03-03 16:10 | NUR ---
CM NOTE/DCP SOLARA MEET WITH PATIENT IN ROOM REGARDING SNF VS [facility]. KIERRA COMPLETED FOR [facility] WITH PLAN B BEING [facility]. CLINICAL PACKET AND INQUIRY FAXED, ROSA MADE AWARE OF REFERRAL. MOT AND EMS FLAGGED IN CHART. PENDING APPROVAL AND REVIEW OF CLINICAL PACKET. CM TO FOLLOW UP ACCORDINGLY.
[2020-03-03 20:00] VITALS: BP 134/73; PULSE 81; RESP 20; TEMP 98
[2020-03-03] MEDS: ATORVASTATIN CALCIUM 20 MG TABLET PO SCH (22:10)
[2020-03-03] MEDS: ROPINIROLE HCL 1 MG TABLET PO SCH (22:12)
[2020-03-04] VITALS (7 sets, daily range): BP systolic 130–151; BP diastolic 59–84; PULSE 82–97; RESP 18–24; TEMP 97.6–98.3
[2020-03-04] MEDS: ACETAMINOPHEN 325 MG TAB PO PRN ×2 (03:37→16:32)
[2020-03-04] MEDS: ACETAMINOPHEN-CODEINE 300/30MG TAB PO PRN ×3 (06:08→21:17)
[2020-03-04] MEDS: INSULIN HUMULIN R 100 UNIT/ML 3ML SQ SCH ×4 (06:43→21:22)
[2020-03-04] MEDS: SEVELAMER HCL 800 MG TABLET PO SCH ×3 (08:16→16:31)
[2020-03-04] MEDS: PAROXETINE HCL 20 MG TABLET PO SCH (08:16)
[2020-03-04] MEDS: GABAPENTIN 100 MG CAPSULE PO SCH (08:16)
[2020-03-04] MEDS: CARVEDILOL 6.25 MG TABLET PO SCH ×3 (09:00→21:14)
[2020-03-04] MEDS: AMLODIPINE BESYLATE 5 MG TAB PO SCH ×2 (09:00→13:14)
[2020-03-04] MEDS: LOSARTAN 100 MG TABLET PO SCH ×2 (09:00→13:13)
[2020-03-04] MEDS: APIXABAN 5 MG TABLET PO SCH ×3 (09:00→21:14)
--- NOTE | 2020-03-04 09:24 | NUR ---
KENIA LYNN/SILVIA APPROVED PER ROSA IRIZARRY [facility], PATIENT APPROVED FOR [facility]. PATIENT TO BE TRANSFERRED VIA EMS. PENDING DIALYSIS TREATMENT TODAY. MOT AND EMS FORMS COMPLETED AND FLAGGED IN CHART. PRIMARY NURSE MADE AWARE OF LT[facility] APPROVAL, PENDING MD JONES ORDERS.
[2020-03-04] MEDS: MUPIROCIN OINTMENT 22 GM TUBE TP SCH ×2 (12:12→21:19)
[2020-03-04] MEDS: VANCOMYCIN 1.25 GM in SODIUM CHLORIDE 0.9% 250 ML IV SCH (13:15)
--- NOTE | 2020-03-04 18:15 | NUR ---
REPORT TO MONALISA RICO RN AT [facility].
--- NOTE | 2020-03-04 18:25 | NUR ---
DISCHARGE INSTRUCTIONS GIVEN, VERBALIZED UNDERSTANDING.
[2020-03-04] MEDS: ATORVASTATIN CALCIUM 20 MG TABLET PO SCH (21:14)
[2020-03-04] MEDS: ROPINIROLE HCL 1 MG TABLET PO SCH (21:17)
--- NOTE | 2020-03-04 21:30 | NUR ---
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 Med effect post pain med was given not completed as pt was d/c at this time to [facility].
== END 2020-03-04 21:30 | DRG 853 ==
LOC: EDH 11:25 → EDHIP 13:30 → 4BH 15:49
PROVIDERS: ADMIT Internal Medicine Nephrology; ATTEND Internal Medicine Nephrology
PROC: 5A1D70Z Performance of Urinary Filtration, Intermittent, Less than 6 Hours Per Day (ICD-10-PCS; 2020-02-22)
PROC: 0VTS0ZZ Resection of Penis, Open Approach (ICD-10-PCS; principal; 2020-02-23 17:56)
PROC: 0TQD0ZZ Repair Urethra, Open Approach (ICD-10-PCS; 2020-02-23 17:56)
PROC: 5A1D70Z Performance of Urinary Filtration, Intermittent, Less than 6 Hours Per Day (ICD-10-PCS; 2020-02-24)
PROC: 5A1D70Z Performance of Urinary Filtration, Intermittent, Less than 6 Hours Per Day (ICD-10-PCS; 2020-02-26)
PROC: 5A1D70Z Performance of Urinary Filtration, Intermittent, Less than 6 Hours Per Day (ICD-10-PCS; 2020-02-29)
PROC: 5A1D70Z Performance of Urinary Filtration, Intermittent, Less than 6 Hours Per Day (ICD-10-PCS; 2020-03-01)
PROC: 5A1D70Z Performance of Urinary Filtration, Intermittent, Less than 6 Hours Per Day (ICD-10-PCS; 2020-03-02)
PROC: 5A1D70Z Performance of Urinary Filtration, Intermittent, Less than 6 Hours Per Day (ICD-10-PCS; 2020-03-04)
DX: A41.9 Sepsis, unspecified organism (principal); N18.6 End stage renal disease; I12.0 Hypertensive chronic kidney disease with stage 5 chronic kidney disease or end stage renal disease; R64 Cachexia; T81.30XA Disruption of wound, unspecified, initial encounter; N49.3 Fournier gangrene; N48.89 Other specified disorders of penis; E87.5 Hyperkalemia; D64.9 Anemia, unspecified; I25.10 Atherosclerotic heart disease of native coronary artery without angina pectoris; E11.22 Type 2 diabetes mellitus with diabetic chronic kidney disease; I48.91 Unspecified atrial fibrillation; E78.5 Hyperlipidemia, unspecified; F12.90 Cannabis use, unspecified, uncomplicated; E83.59 Other disorders of calcium metabolism; I25.5 Ischemic cardiomyopathy; E03.9 Hypothyroidism, unspecified; E11.51 Type 2 diabetes mellitus with diabetic peripheral angiopathy without gangrene; E83.39 Other disorders of phosphorus metabolism; G89.29 Other chronic pain; N30.80 Other cystitis without hematuria; Y83.3 Surgical operation with formation of external stoma as the cause of abnormal reaction of the patient, or of later complication, without mention of misadventure at the time of the procedure; Y92.89 Other specified places as the place of occurrence of the external cause; Z76.5 Malingerer [conscious simulation]; Z99.2 Dependence on renal dialysis; Z79.01 Long term (current) use of anticoagulants; Z95.1 Presence of aortocoronary bypass graft; Z91.15 Patient's noncompliance with renal dialysis; Z91.19 Patient's noncompliance with other medical treatment and regimen; Z91.11 Patient's noncompliance with dietary regimen; Z95.5 Presence of coronary angioplasty implant and graft; Z86.73 Personal history of transient ischemic attack (TIA), and cerebral infarction without residual deficits; Z83.3 Family history of diabetes mellitus; Z84.1 Family history of disorders of kidney and ureter